=== PATIENT | female | born 1950 | race African-American/Black ===

== ENCOUNTER → 2020-06-26 10:19 | Outpatient (BNVA) | payer MEDICARE, SELFPAY | PROVIDERS: PCP Internal Medicine; Visit Provider Hospitalist | DX: J44.9 Chronic obstructive pulmonary disease, unspecified (principal); G47.33 Obstructive sleep apnea (adult) (pediatric); I42.9 Cardiomyopathy, unspecified; R06.00 Dyspnea, unspecified; J98.4 Other disorders of lung; Z99.89 Dependence on other enabling machines and devices | CPT/HCPCS: 99212 ==

== ENCOUNTER → 2021-03-21 14:59 | Outpatient (BNVA) | payer MEDICARE, SELFPAY | PROVIDERS: PCP Internal Medicine; Visit Provider Hospitalist | DX: J98.4 Other disorders of lung (principal); J44.9 Chronic obstructive pulmonary disease, unspecified; R06.00 Dyspnea, unspecified; G47.33 Obstructive sleep apnea (adult) (pediatric); Z99.89 Dependence on other enabling machines and devices | CPT/HCPCS: 99212 ==

== ENCOUNTER → 2021-07-21 15:42 | Outpatient (REF) | payer MEDICARE, SELFPAY | LOC: HO.SL 15:42 | PROVIDERS: PCP Internal Medicine; Visit Provider Hospitalist | DX: G47.33 Obstructive sleep apnea (adult) (pediatric) (principal); R06.83 Snoring; R63.4 Abnormal weight loss; Z99.89 Dependence on other enabling machines and devices | CPT/HCPCS: 95806 ==

== ENCOUNTER → 2021-09-23 12:31 | Outpatient (BNVA) | payer MEDICARE, SELFPAY | PROVIDERS: PCP Internal Medicine; Visit Provider Hospitalist | DX: J98.4 Other disorders of lung (principal); J44.9 Chronic obstructive pulmonary disease, unspecified; R06.00 Dyspnea, unspecified; G47.33 Obstructive sleep apnea (adult) (pediatric); Z99.89 Dependence on other enabling machines and devices | CPT/HCPCS: 99212 ==

== ENCOUNTER 2021-10-06 11:34 | Outpatient (REF) | payer MEDICARE, SELFPAY ==
[2021-10-06 12:25] LABS: Basophils Percent Auto 0.8 % (0-2); Eosinophils Absolute Auto 0.1 X10*3/uL (0.0-0.4); Eosinophils Percent Auto 3.7 % (0-4); Hematocrit 31.6 % (37.0-47.0); Hemoglobin 9.6 g/dl (12.0-16.0); Lymphocytes Percent Auto 38.8 % (20-40); MANUAL DIFF FLAG SCAN; Mean Corpuscular HGB Conc 30.4 g/dl (31.0-35.0); Mean Corpuscular Volume 101.9 fL (80.0-98.0); Mean Platelet Volume 10.6 fL (9.4-12.3); Monocytes Absolute Auto 0.4 X10*3/uL (0.1-1.2); Monocytes Percent Auto 15.1 % (2-11); Neutrophils Percent Auto 41.6 % (45-73); Platelet Count 148 X10*3/uL (160-400); Red Cell Distribution Width 14.8 % (11.0-16.0); SCAN SMEAR FLAG 1
[2021-10-06 12:29] LABS: White Blood Count 2.5 X10*3/uL (4.8-10.8)
[2021-10-06 13:06] LABS: SLIDE REVIEW VERIFIED
== END 2021-10-06 11:35 | disposition home or self-care (01) ==
LOC: HO.LAB 11:34
PROVIDERS: Visit Provider Nurse Practitioner Family
DX: I42.8 Other cardiomyopathies (principal); I48.0 Paroxysmal atrial fibrillation
CPT/HCPCS: 36415; 85025

== ENCOUNTER 2021-10-10 10:27 | Outpatient (REF) | payer MEDICARE, SELFPAY ==
--- NOTE | ~2021-10-10 | CT_ITS ---
EXAMINATION: CT HEAD WITH/WITHOUT CONTRAST CLINICAL INFORMATION: Reevaluate meningioma. COMPARISON: CT from 10/15/2016. TECHNIQUE: Contiguous axial imaging was performed from the skull base to vertex before and after the administration of 85 mL of Omnipaque [address] examination was performed using dose optimization techniques as appropriate, variously including the following: *Automated exposure control *Adjustment of mA and/or kV according to patient size (this includes techniques or standardized protocols for targeted exams where dose is matched to indication/reason for exam; i.e. extremities or head) *Use of iterative reconstruction technique DLP: 1547 mGy-cm FINDINGS: A small 1 cm meningioma at the vertex adjacent to the falx on the right side with eccentric internal mineralization is stable compared to prior imaging. There is no evidence of acute intracranial hemorrhage or territorial infarction. No abnormal mass effect or midline shift is seen. [place] to white matter differentiation is well preserved. No extra-axial fluid collections are identified. The ventricles are normal in size. There is no abnormal parenchymal enhancement. There is no abnormal attenuation within the brain parenchyma. The osseous structures and soft tissues are normal. The mastoid air cells are well aerated. There are high attenuation mucoid secretions opacifying the left maxillary sinus, left middle meatus, and left anterior ethmoid air cells. The frontal sinuses are not developed. The remaining paranasal sinuses are fairly well aerated. Findings are new compared to prior imaging. CT/CT head/brain wo/w con IMPRESSION: No acute intracranial pathology. Stable small right parafalcine meningioma at the vertex. Left-sided ostiomeatal complex pattern of sinus disease with high attenuation mucoid secretions opacifying the anterior left ethmoid air cells, left middle meatus, and left maxillary antrum. Follow-up ENT evaluation recommended in order to rule out an obstructing lesion. Please note that the left maxillary dentition are not included on imaging for this examination.
[2021-10-10] MEDS: iohexoL 350 MG/ML 100 ML INFUS..BTL IV (12:10)
== END 2021-10-10 10:28 | disposition home or self-care (01) ==
LOC: HO.CT 10:27
PROVIDERS: Visit Provider Psychiatry & Neurology Neurology
DX: D32.9 Benign neoplasm of meninges, unspecified (principal)
CPT/HCPCS: 70470; Q9967

== ENCOUNTER → 2022-05-06 10:54 | Outpatient (BNVA) | payer MEDICARE, SELFPAY | PROVIDERS: PCP Internal Medicine; Visit Provider Hospitalist | DX: J44.9 Chronic obstructive pulmonary disease, unspecified (principal); J98.4 Other disorders of lung; R06.00 Dyspnea, unspecified | CPT/HCPCS: 99212 ==

== ENCOUNTER 2022-06-23 09:32 | Outpatient (REF) | payer MEDICARE, SELFPAY ==
--- NOTE | 2022-06-23 14:46 | PFT_ITS ---
Forced vital capacity is 73%, FEV1 79%, FEV1/FVC ratio 84. PBT52-81 104% and MVV 74%. Post bronchodilator therapy, there is no change. Total lung capacity 68% and residual volume 63%. Diffusion capacity 58% CONCLUSION: Restrictive pulmonary disorder, moderately severe. No obstructive airway disorder, and there is no response to bronchodilator therapy. MD SROEN Ring/ASHER / [id number]
== END 2022-06-23 09:33 | disposition home or self-care (01) ==
LOC: HO.RESP 09:32
PROVIDERS: PCP Internal Medicine; Visit Provider Hospitalist
DX: J44.9 Chronic obstructive pulmonary disease, unspecified (principal)
CPT/HCPCS: 94060; 94727; 94729

== ENCOUNTER 2022-08-19 09:29 | Outpatient (REF) | payer MEDICARE, SELFPAY ==
--- NOTE | ~2022-08-19 | XR_ITS ---
EXAMINATION: XR CHEST CLINICAL INFORMATION: J98.4 - Other disorders of lung COMPARISON: Chest radiographs 06/26/2019, CT chest 07/28/2019. TECHNIQUE: 2 views of the chest were obtained. FINDINGS: Cardiopericardial silhouette is borderline enlarged, stable to decreased from prior chest radiographs. The vascularity is normal. There is a 3-lead pacer/AICD. No pneumothorax, airspace consolidation, or groundglass opacity. The posterior costophrenic sulci are clear. There is no effusion. No hyperinflation. XR/XR chest 2V IMPRESSION: No acute intrathoracic disease.
== END 2022-08-19 09:30 | disposition home or self-care (01) ==
LOC: HO.XRAY 09:29
PROVIDERS: PCP Internal Medicine; Visit Provider Hospitalist
DX: J98.4 Other disorders of lung (principal); R06.00 Dyspnea, unspecified; J44.9 Chronic obstructive pulmonary disease, unspecified; G47.33 Obstructive sleep apnea (adult) (pediatric); Z79.899 Other long term (current) drug therapy
CPT/HCPCS: 71046; 99212

== ENCOUNTER → 2022-12-23 09:27 | Outpatient (BNVA) | payer MEDICARE, SELFPAY | PROVIDERS: PCP Internal Medicine; Visit Provider Hospitalist | DX: J44.9 Chronic obstructive pulmonary disease, unspecified (principal); J98.4 Other disorders of lung; J98.11 Atelectasis | CPT/HCPCS: 99212 ==

== ENCOUNTER 2023-09-21 13:51 | Outpatient (AMB) | payer MEDICARE, SELFPAY ==
[2023-09-21 14:05] VITALS: BP 132/70; PULSE 60; O2SAT 98; BMI 31.0
--- NOTE | 2023-09-21 14:05 | A.OFFVIS_ITS ---
Intake Vital Signs 09/21/23 14:05 Height 5 ft 8 in Weight 204 lb BMI 31.0 BP 132/70 Blood Pressure Location Lt brachial Position Sitting Pulse 60 Pulse Source Pulse Oximeter Pulse Oximetry (%) 98 Oxygen Delivery Method Room Air Intake Visit Reasons: Sleep apnea Allergies Codeine Allergy (Severe, Uncoded 09/21/23 14:06) Rash and Hives HPI HPI Comments History of Present Illness Details The patient is a 73-year-old woman known COPD in addition to obstructive sleep apnea on CPAP. Apparently she was scheduled to undergo a total knee replacement at [facility] back in March 2019 which was found to have being age from fibrillation this was a new diagnosis for her. She was admitted to the hospital with AFib with rapid ventricular response with EKG changes. Her echo was done demonstrating an EF of 35-40%. She also underwent a diagnostic catheterization demonstrated some coronary artery disease. She was subsequently sent to [facility] for a intervention however, her her blockers was not significant enough for too small for stent so therefore they opted on medical therapy. At this point she does not require surgical intervention. She is recovering well she is on Eliquis now for blood thinners. She currently has a Holter monitor to further assess her arrhythmias. Her breathing still an issue. She is to having dyspnea on exertion. Moderate severity. She has been using Symbicort at times. The patient also has a history of sleep apnea. She has not been able to get back to using her machine after her recent hospitalization. She understands that we need to get her back on CPAP nor to treat her cardiac risk including her cardiac arrhythmia and coronary artery disease. Holter monitor was okay. There is still not sure how much of the cardiac issues contributing to her respiratory symptoms. She did have pulmonary function studies that with we personally reviewed no evidence of any obstruction although she has small airway disease more consistent with a diagnosis like asthma. She responds very well to the inhaler. However she also has a restrictive component. We have to further investigate this with imaging studies. Her CPAP she still getting used to her new mask. She has tried going to try her old mask. She understands she needs to do that because is going to treat her cardiovascular risk. She did undergo a CT scan of the chest that we personally reviewed. The patient did have some evidence of atelectasis at the bases. Partly due to enlarged heart question on the lungs. Does have significant cardiomegaly. She also has evidence of atherosclerosis and distended vessels. The patient also was taken for brief walking oximetry and she maintain a pulse ox of 96%. However the heart rate did increase above 100 and the patient quickly became very short of breath with that. She will be following up with the wire tester soon. In the meantime she continues use her CPAP. The CPAP therapy continues to be effective beneficial. She uses the CPAP for more than 4 hours a night. 12/23/2022 the patient is here for a pulmo nary follow-up visit. Since we last spoke the patient unfortunately had a bad fall fracturing her left like. She did have to be admitted to [facility] which she did undergo surgery. Now she is recovering at home. She still has a soft splint and she is going to be evaluated soon since the just happen. Since they have been she has been noticing increasing shortness of breath hard time taking a deep breath in. Denies any mucus production denies any fevers or chills and she denies any pleuritic discomfort which is reassuring for she has been using the Trelegy inha ler although is bothering her throat most likely the powder. Therefore will switch over to an HFA form with spacer to better provide the medication without irritating her vocal cords. In addition to that the patient does have some crackles on examination at the right base. Likely atelectasis postoperatively and she needs to start using the hand forearm her more. In the meantime if the patient worsens with increasing shortness of breath cough discomfort I did give her a course of doxycycline she can start but also to call me to let me know. We did talk about the importance of the incentive spirometer and she can use it 3 to 4 times a day to avoid developing a infectious process. Will follow-up in 2-3 months. If she has any new or worsening respiratory symptoms she is to call for further evaluation. 09/21/2023 the patient is here for pulmonary follow-up visit. currently having issues with the knee. 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 Now she is going to undergo surgery. For respiratory status she continues to use her respiratory medications with good effect. She does complaint of shortness of breath with activity. The patient does have good response to her respiratory medications. She does complaint of headaches in the morning. The patient does have underlying COPD so therefore I will request an overnight oximetry to see if she requires nocturnal oxygen. During the last visit we did switch over from Trelegy to breztri and she is tolerating it well. Her last chest x-ray was back from June 2023 demo nstrating no acute disease. Will hold off on any additional imaging at this time. Will try to have an overnight oximetry done prior to her surgery. The patient will follow-up in 4-6 months. [facility] Medical History (Updated 09/21/23 @ 14:10 by Horace Gonsalves MD) Chronic restrictive lung disease Dyspnea Cardiomyopathy DENYS on CPAP COPD (chronic obstructive pulmonary disease) Social History (Updated 03/21/21 @ 15:30 by LUCY Zhou) Patient Tobacco Use Status: Former Tobacco user Tobacco use type: Cigarette Years Smoked: 16 years Review of Systems Const Reports daytime sleepiness, Reports difficulty sleeping, Reports headache(s), Reports poor appetite and Reports weight gain ENT Denies change in voice, Reports headache(s), Denies lip swelling, Denies mouth pain, Reports nasal congestion, Reports nasal discharge and Denies tongue swelling Card Denies chest pain and Reports dyspnea on exertion Resp Reports cough and Reports dyspnea on exertion GI Denies abdominal pain Musc Reports as per HPI, Reports abnormal gait, Reports arthralgias and Reports joint swelling Neuro Denies Neuro-related abnormal movements, Reports abnormal gait and Reports hea dache(s) Psych Denies no additional complaints Seven/Lymph Denies easy bleeding and Denies lymphadenopathy Aller/Immun Denies lip swelling and Denies tongue swelling Physical Exam Vital Signs: Last Vital Signs Pulse 60 09/21/23 14:05 BP 132/70 09/21/23 14:05 Pulse Ox 98 09/21/23 14:05 Oxygen Delivery Method Room Air 09/21/23 14:05 BMI result Body Mass Index 31.0 Const General: alert Neck Neck: Yes normal visual inspection, Yes full ROM and Yes no lymphadenopathy Chest Chest palpation & inspection: normal inspection of the chest Resp Auscultation: no crackles and diminished lung sounds Cardio Rate: regular rate Rhythm: regular rhythm Heart sounds: S1 normal heart sound present and S2 normal heart sound present GI Palpation (GI): Soft to palpation and nontender Auscultation: normal bowel sounds Skin General skin exam: rashes and/or lesions noted Assessment & Plan Assessment & Plan (1) Chronic restrictive lung disease: Code(s): J98.4 - Other disorders of lung (2) Dyspnea: Code(s): R06.00 - Dyspnea, unspecified Qualifiers: Dyspnea type: dyspnea on exertion Qualified Code(s): R06.09 - Other forms of dyspnea (3) COPD (chronic obstructive pulmonary disease): Code(s): J44.9 - Chronic obstructive pulmonary disease, unspecified Qualifiers: COPD type: chronic bronchitis Chronic bronchitis type: simple Qualified Code(s): J41.0 - Simple chronic bronchitis (4) Atelectasis of right lung: Code(s): J98.11 - Atelectasis Plan continue Breztri with spacer short-acting beta agonist as needed Overnight oximetry F/U in 4-6 months Orders: Orders Overnight Pulse Oximetry Today J44.9 - Chronic obstructive pulmonary disease, unspecified Coding Level of Care Code Est Pt Level 4 (30819) Diagnoses Chronic restrictive lung disease J98.4 Dyspnea on exertion R06.09 Dyspnea type: dyspnea on exertion Simple chronic bronchitis J41.0 COPD type: chronic bronchitis Chronic bronchitis type: simple Atelectasis of right lung J98.11 Time Spent (min) 17
== END 2023-09-21 14:24 | disposition home or self-care (01) ==
PROVIDERS: PCP Internal Medicine; Visit Provider Hospitalist
DX: J98.4 Other disorders of lung (principal); R06.09 Other forms of dyspnea; J41.0 Simple chronic bronchitis; J98.11 Atelectasis
CPT/HCPCS: 99214

== ENCOUNTER → 2023-09-21 13:51 | Outpatient (BNVA) | payer MEDICARE, SELFPAY | PROVIDERS: PCP Internal Medicine; Visit Provider Hospitalist | DX: J98.4 Other disorders of lung (principal); J41.0 Simple chronic bronchitis; J98.11 Atelectasis; R06.09 Other forms of dyspnea | CPT/HCPCS: 99212 ==

== ENCOUNTER 2024-03-23 14:16 | Outpatient (AMB) | payer MEDICARE, SELFPAY ==
--- NOTE | 2024-03-23 14:20 | A.OFFVIS_ITS ---
Vital Signs 03/23/24 14:21 Height 5 ft 8 in Weight 195 lb BMI 29.6 BP 118/60 Blood Pressure Location Rt brachial Position Sitting Pulse 60 Pulse Source Pulse Oximeter Pulse Oximetry (%) 99 Oxygen Delivery Method Room Air Intake Visit Reasons: Sleep apnea Bulk Cooler Installer Required: No Allergies Codeine Allergy (Severe, Uncoded 03/23/24 14:23) Rash and Hives HPI Comments Details: The patient is a 73-year-old woman known COPD in addition to obstructive sleep apnea on CPAP. Apparently she was scheduled to undergo a total knee replacement at [facility] back in March 2019 which was found to have being age from fibrillation this was a new diagnosis for her. She was admitted to the hospital with AFib with rapid ventricular response with EKG changes. Her echo was done demonstrating an EF of 35-40%. She also underwent a diagnostic catheterization demonstrated some coronary artery disease. She was subsequently sent to [facility] for a intervention however, her her blockers was not significant enough for too small for stent so therefore they opted on medical therapy. At this point she does not require surgical intervention. She is recovering well she is on Eliquis now for blood thinners. She currently has a Holter monitor to further assess her arrhythmias. Her breathing still an issue. She is to having dyspnea on exertion. Moderate severity. She has been using Symbicort at times. The patient also has a history of sleep apnea. She has not been able to get back to using her machine after her recent hospitalization. She understands that we need to get her back on CPAP nor to treat her cardiac risk including her cardiac arrhythmia and coronary artery disease. Holter monitor was okay. There is still not sure how much of the cardiac issues contributing to her respiratory symptoms. She did have pulmonary function studies that with we personally reviewed no evidence of any obstruction although she has small airway disease more consistent with a diagnosis like asthma. She responds very well to the inhaler. However she also has a restrictive component. We have to further investigate this with imaging studies. Her CPAP she still getting used to her new mask. She has tried going to try her old mask. She understands she needs to do that because is going to treat her cardiovascular risk. She did undergo a CT scan of the chest that we personally reviewed. The patient did have some evidence of atelectasis at the bases. Partly due to enlarged heart question on the lungs. Does have significant cardiomegaly. She also has evidence of atherosclerosis and distended vessels. The patient also was taken for brief walking oximetry and she maintain a pulse ox of 96%. However the heart rate did increase above 100 and the patient quickly became very short of breath with that. She will be following up with the backhoe operator soon. In the meantime she continues use her CPAP. The CPAP therapy continues to be effective beneficial. She uses the CPAP for more than 4 hours a night. 12/23/2022 the patient is here for a pulmonary follow-up visit. Since we last spoke the patient unfortunately had a bad fall fracturing her left like. She did have to be admitted to [facility] which she did undergo surgery. Now she is recovering at home. She still has a soft splint and she is going to be evaluated soon since the just happen. Since they have been she has been noticing increasing shortness of breath hard time taking a deep breath in. Denies any mucus production denies any fevers or chills and she denies any pleuritic discomfort which is reassuring for she has been using the Trelegy inhaler although is bothering her throat most likely the powder. Therefore will switch over to an HFA form with spacer to better provide the medication without irritating her vocal cords. In addition to that the patient does have some crackles on examination at the right base. Likely atelectasis postoperatively and she needs to start using the hand forearm her more. In the meantime if the patient worsens with increasing shortness of breath cough discomfort I did give her a course of doxycycline she can start but also to call me to let me know. We did talk about the importance of the incentive spirometer and she can use it 3 to 4 times a day to avoid developing a infectious process. Will follow-up in 2-3 months. If she has any new or worsening respiratory symptoms she is to call for further evaluation. 09/21/2023 the patient is here for pulmonary follow-up visit. currently having issues with the knee. 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 Now she is going to undergo surgery. For respiratory status she continues to use her respiratory medications with good effect. She does complaint of shortness of breath with activity. The patient does have good response to her respiratory medications. She does complaint of headaches in the morning. The patient does have underlying COPD so therefore I will request an overnight oximetry to see if she requires nocturnal oxygen. During the last visit we did switch over from Trelegy to breztri and she is tolerating it well. Her last chest x-ray was back from June 2023 demonstrating no acute disease. Will hold off on any additional imaging at this time. Will try to have an overnight oximetry done prior to her surgery. The patient will follow-up in 4-6 months. 03/23/2024 The patient is here for a pulmonary follow up visit. Has been Complaining of worsened daytime drowsiness. Her [place] score is elevated 06/11. She also complains of headaches. We did perform an overnight oximetry and she did desaturate significantly. She was placed on oxygen to use while sleeping. However, she did not tolerate the loud concentrator. Therefore she returned it. Although she is still symptomatic. She does carry a diagnosis of sleep apnea. Will go ahead and request an in-lab sleep study specially with nocturnal hypoxia. In the meantime she continues respiratory therapy with good effect. The patient follow-up after her in-lab sleep study. [facility] Medical History (Updated 03/23/24 @ 14:38 by Horace Gonsalves MD) Ventricular tachycardia Nocturnal hypoxia DENYS (obstructive sleep apnea) Chronic restrictive lung disease Dyspnea Cardiomyopathy DENYS on CPAP COPD (chronic obstructive pulmonary disease) Social History (Updated 03/21/21 @ 15:30 by Milla Rawls [facility]) Patient Tobacco Use Status: Former Tobacco user Tobacco use type: Cigarette Years Smoked: 16 years Review of Systems Const Reports daytime sleepiness, Reports difficulty sleeping, Reports headache(s), Reports poor appetite and Reports weight gain ENT Denies change in voice, Reports headache(s), Denies lip swelling, Denies mouth pain, Reports nasal congestion, Reports nasal discharge and Denies tongue swelling Card Denies chest pain and Reports dyspnea on exertion Resp Reports cough and Reports dyspnea on exertion GI Denies abdominal pain Musc Reports as per HPI, Reports abnormal gait, Reports arthralgias and Reports joint swelling Neuro Denies Neuro-related abnormal movements, Reports abnormal gait and Reports headache(s) Psych Denies no additional complaints Seven/Lymph Denies easy bleeding and Denies lymphadenopathy Aller/Immun Denies lip swelling and Denies tongue swelling Physical Exam Vital Signs: Last Vital Signs Pulse 60 03/23/24 14:21 BP 118/60 03/23/24 14:21 Pulse Ox 99 03/23/24 14:21 Oxygen Delivery Method Room Air 03/23/24 14:21 BMI result Body Mass Index 29.6 Const General: alert Neck Neck: Yes normal visual inspection, Yes full ROM and Yes no lymphadenopathy Chest Chest palpation & inspection: normal inspection of the chest Resp Auscultation: no crackles and diminished lung sounds Cardio Rate: regular rate Rhythm: regular rhythm Heart sounds: S1 normal heart sound present and S2 normal heart sound present GI Palpation (GI): Soft to palpation and nontender Auscultation: normal bowel sounds Skin General skin exam: rashes and/or lesions noted Assessment & Plan Assessment & Plan (1) Chronic restrictive lung disease: Code(s): J98.4 - Other disorders of lung Category: Medical (2) Dyspnea: Code(s): R06.00 - Dyspnea, unspecified Category: Medical Qualifiers: Dyspnea type: dyspnea on exertion Qualified Code(s): R06.09 - Other forms of dyspnea (3) COPD (chronic obstructive pulmonary disease): Code(s): J44.9 - Chronic obstructive pulmonary disease, unspecified Category: Medical Qualifiers: COPD type: chronic bronchitis Chronic bronchitis type: simple Qualified Code(s): J41.0 - Simple chronic bronchitis (4) Atelectasis of right lung: Code(s): J98.11 - Atelectasis Category: Medical (5) DENYS (obstructive sleep apnea): Code(s): G47.33 - Obstructive sleep apnea (adult) (pediatric) Category: Medical Plan continue Breztri with spacer short-acting beta agonist as needed in lab PSG F/U in 3-4 months Orders: Orders RT PSG in-lab sleep study Today G47.33 - Obstructive sleep apnea (adult) (pediatric), G47.34 - Idiopathic sleep related nonobstructive alveolar hypoventilation, I47.20 - Ventricular tachycardia, unspecified Coding Level of Care Code Est Pt Level 4 (62647) Diagnoses Chronic restrictive lung disease J98.4 Dyspnea on exertion R06.09 Dyspnea type: dyspnea on exertion Simple chronic bronchitis J41.0 COPD type: chronic bronchitis Chronic bronchitis type: simple Atelectasis of right lung J98.11 DENYS (obstructive sleep apnea) G47.33 Time Spent (min) 16
[2024-03-23 14:21] VITALS: BP 118/60; PULSE 60; O2SAT 99; BMI 29.6
== END 2024-03-23 14:45 | disposition home or self-care (01) ==
PROVIDERS: PCP Internal Medicine; Visit Provider Hospitalist
DX: J98.4 Other disorders of lung (principal); R06.09 Other forms of dyspnea; J41.0 Simple chronic bronchitis; J98.11 Atelectasis; G47.33 Obstructive sleep apnea (adult) (pediatric)
CPT/HCPCS: 99214

== ENCOUNTER → 2024-03-23 14:16 | Outpatient (BNVA) | payer MEDICARE, SELFPAY | PROVIDERS: PCP Internal Medicine; Visit Provider Hospitalist | DX: G47.33 Obstructive sleep apnea (adult) (pediatric) (principal); J98.4 Other disorders of lung; J41.0 Simple chronic bronchitis; J98.11 Atelectasis; Z99.89 Dependence on other enabling machines and devices | CPT/HCPCS: 99212 ==

== ENCOUNTER → 2024-04-03 20:30 | Outpatient (REF) | payer MEDICARE, SELFPAY | LOC: HO.SL 20:30 | PROVIDERS: PCP Internal Medicine; Visit Provider Hospitalist | DX: G47.33 Obstructive sleep apnea (adult) (pediatric) (principal); G47.34 Idiopathic sleep related nonobstructive alveolar hypoventilation; I47.20 Ventricular tachycardia, unspecified | CPT/HCPCS: 95810 ==

== ENCOUNTER → 2024-04-03 21:52 | Outpatient (BNV) | payer MEDICARE, SELFPAY | PROVIDERS: PCP Internal Medicine; Visit Provider Internal Medicine | DX: G47.33 Obstructive sleep apnea (adult) (pediatric) (principal); G47.61 Periodic limb movement disorder | CPT/HCPCS: 95810 ==

== ENCOUNTER 2024-07-26 11:09 | Outpatient (AMB) | payer MEDICARE, SELFPAY ==
--- NOTE | 2024-07-26 11:13 | MHC.OFFVIS ---
Vital Signs 07/26/24 11:14 Height 5 ft 8 in Weight 209 lb 7.026 oz BMI 31.8 BP 140/68 H Blood Pressure Location Lt brachial Position Sitting Pulse 60 Pulse Source Pulse Oximeter Pulse Oximetry (%) 97 Oxygen Delivery Method Room Air Intake Visit Reasons: Sleep apnea Allergies Codeine Allergy (Severe, Uncoded 07/26/24 11:19) Rash and Hives HPI Comments Details: The patient is a 74-year-old woman known COPD in addition to obstructive sleep apnea on CPAP. Apparently she was scheduled to undergo a total knee replacement at [facility] back in March 2019 which was found to have being age from fibrillation this was a new diagnosis for her. She was admitted to the hospital with AFib with rapid ventricular response with EKG changes. Her echo was done demonstrating an EF of 35-40%. She also underwent a diagnostic catheterization demonstrated some coronary artery disease. She was subsequently sent to [facility] for a intervention however, her her blockers was not significant enough for too small for stent so therefore they opted on medical therapy. At this point she does not require surgical intervention. She is recovering well she is on Eliquis now for blood thinners. She currently has a Holter monitor to further assess her arrhythmias. Her breathing still an issue. She is to having dyspnea on exertion. Moderate severity. She has been using Symbicort at times. The patient also has a history of sleep apnea. She has not been able to get back to using her machine after her recent hospitalization. She understands that we need to get her back on CPAP nor to treat her cardiac risk including her cardiac arrhythmia and coronary artery disease. Holter monitor was okay. There is still not sure how much of the cardiac issues contributing to her respiratory symptoms. She did have pulmonary function studies that with we personally reviewed no evidence of any obstruction although she has small airway disease more consistent with a diagnosis like asthma. She responds very well to the inhaler. However she also has a restrictive component. We have to further investigate this with imaging studies. Her CPAP she still getting used to her new mask. She has tried going to try her old mask. She understands she needs to do that because is going to treat her cardiovascular risk. She did undergo a CT scan of the chest that we personally reviewed. The patient did have some evidence of atelectasis at the bases. Partly due to enlarged heart question on the lungs. Does have significant cardiomegaly. She also has evidence of atherosclerosis and distended vessels. The patient also was taken for brief walking oximetry and she maintain a pulse ox of 96%. However the heart rate did increase above 100 and the patient quickly became very short of breath with that. She will be following up with the pattern stamper soon. In the meantime she continues use her CPAP. The CPAP therapy continues to be effective beneficial. She uses the CPAP for more than 4 hours a night. 12/23/2022 the patient is here for a pulmonary follow-up visit. Since we last spoke the patient unfortunately had a bad fall fracturing her left like. She did have to be admitted to [facility] which she did undergo surgery. Now she is recovering at home. She still has a soft splint and she is going to be evaluated soon since the just happen. Since they have been she has been noticing increasing shortness of breath hard time taking a deep breath in. Denies any mucus production denies any fevers or chills and she denies any pleuritic discomfort which is reassuring for she has been using the Trelegy inhaler although is bothering her throat most likely the powder. Therefore will switch over to an HFA form with spacer to better provide the medication without irritating her vocal cords. In addition to that the patient does have some crackles on examination at the right base. Likely atelectasis postoperatively and she needs to start using the hand forearm her more. In the meantime if the patient worsens with increasing shortness of breath cough discomfort I did give her a course of doxycycline she can start but also to call me to let me know. We did talk about the importance of the incentive spirometer and she can use it 3 to 4 times a day to avoid developing a infectious process. Will follow-up in 2-3 months. If she has any new or worsening respiratory symptoms she is to call for further evaluation. 09/21/2023 the patient is here for pulmonary follow-up visit. currently having issues with the knee. 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 Now she is going to undergo surgery. For respiratory status she continues to use her respiratory medications with good effect. She does complaint of shortness of breath with activity. The patient does have good response to her respiratory medications. She does complaint of headaches in the morning. The patient does have underlying COPD so therefore I will request an overnight oximetry to see if she requires nocturnal oxygen. During the last visit we did switch over from Trelegy to breztri and she is tolerating it well. Her last chest x-ray was back from June 2023 demonstrating no acute disease. Will hold off on any additional imaging at this time. Will try to have an overnight oximetry done prior to her surgery. The patient will follow-up in 4-6 months. 03/23/2024 The patient is here for a pulmonary follow up visit. Has been Complaining of worsened daytime drowsiness. Her [place] score is elevated 06/11. She also complains of headaches. We did perform an overnight oximetry and she did desaturate significantly. She was placed on oxygen to use while sleeping. However, she did not tolerate the loud concentrator. Therefore she returned it. Although she is still symptomatic. She does carry a diagnosis of sleep apnea. Will go ahead and request an in-lab sleep study specially with nocturnal hypoxia. In the meantime she continues respiratory therapy with good effect. The patient follow-up after her in-lab sleep study. 07/26/2024 the patient is here for a pulmonary follow-up visit. Overall she is doing well. Still has some dyspnea on exertion thip-bj-lppodnlk severity. Also gets wheezing time specially she forgets to take her inhaler. She does take her inhalers regularly. She has not had any recent exacerbations. She is sleeping better. She is not using oxygen at nighttime. She did have a in-lab sleep study which we did review. No evidence of any sleep apnea or hypoxia this time. Therefore is reassuring. She may have a component of periodic limb movement but does related to the fact that she has had some issues with her hips and knees. She is also having some issues with her eyes with her significantly red. She also has what appears to be some swelling around the eyes. They are we doing her kitchen therefore may have other allergens in the area. Will go ahead and send her an allergy medication to see if this provides some relief. Overall she is doing well. The patient will continue with current respiratory therapy plan to follow-up sometime in the fall. If any issues arise she can always call for an earlier assessment. [facility] Medical History (Updated 03/23/24 @ 14:38 by Horace Gonsalves MD) Ventricular tachycardia Nocturnal hypoxia DENYS (obstructive sleep apnea) Chronic restrictive lung disease Dyspnea Cardiomyopathy DENYS on CPAP COPD (chronic obstructive pulmonary disease) Social History Patient Tobacco Use Status: Former Tobacco user Tobacco use type: Cigarette Years Smoked: 16 years Review of Systems Const Reports daytime sleepiness, Reports difficulty sleeping, Reports headache(s), Reports poor appetite and Reports weight gain ENT Denies change in voice, Reports headache(s), Denies lip swelling, Denies mouth pain, Reports nasal congestion, Reports nasal discharge and Denies tongue swelling Card Denies chest pain and Reports dyspnea on exertion Resp Reports cough and Reports dyspnea on exertion GI Denies abdominal pain Musc Reports as per HPI, Reports abnormal gait, Reports arthralgias and Reports joint swelling Neuro Denies Neuro-related abnormal movements, Reports abnormal gait and Reports headache(s) Psych Denies no additional complaints Seven/Lymph Denies easy bleeding and Denies lymphadenopathy Aller/Immun Denies lip swelling and Denies tongue swelling Physical Exam Vital Signs: Last Vital Signs Pulse 60 07/26/24 11:14 BP 140/68 H 07/26/24 11:14 Pulse Ox 97 07/26/24 11:14 Oxygen Delivery Method Room Air 07/26/24 11:14 BMI result Body Mass Index 31.8 Const General: alert Eyes Periorbital: periorbital findings abnormal bilateral periorbital swelling Neck Neck: Yes normal visual inspection, Yes full ROM and Yes no lymphadenopathy Chest Chest palpation & inspection: normal inspection of the chest Resp Auscultation: clear to auscultation bilaterally and no crackles Cardio Rate: regular rate Rhythm: regular rhythm Heart sounds: S1 normal heart sound present, S2 normal heart sound present and Murmur heart sound present GI Palpation (GI): Soft to palpation and nontender Auscultation: normal bowel sounds Skin General skin exam: rashes and/or lesions noted Assessment & Plan Assessment & Plan (1) Chronic restrictive lung disease: Code(s): J98.4 - Other disorders of lung Category: Medical (2) Dyspnea: Code(s): R06.00 - Dyspnea, unspecified Category: Medical Qualifiers: Dyspnea type: dyspnea on exertion Qualified Code(s): R06.09 - Other forms of dyspnea (3) COPD (chronic obstructive pulmonary disease): Code(s): J44.9 - Chronic obstructive pulmonary disease, unspecified Category: Medical Qualifiers: COPD type: chronic bronchitis Chronic bronchitis type: simple Qualified Code(s): J41.0 - Simple chronic bronchitis (4) Atelectasis of right lung: Code(s): J98.11 - Atelectasis Category: Medical (5) DENYS (obstructive sleep apnea): Code(s): G47.33 - Obstructive sleep apnea (adult) (pediatric) Category: Medical Plan continue Breztri with spacer short-acting beta agonist as needed start claritin F/U in 6-8 months Medications: New loratadine (Claritin) 10 mg PO DAILY 30 tabs 11RF 30 days J30.2 - Other seasonal allergic rhinitis, J45.909 - Unspecified asthma, uncomplicated Coding Level of Care Code Est Pt Level 4 (54208) Diagnoses Chronic restrictive lung disease J98.4 Dyspnea on exertion R06.09 Dyspnea type: dyspnea on exertion Simple chronic bronchitis J41.0 COPD type: chronic bronchitis Chronic bronchitis type: simple Atelectasis of right lung J98.11 DENYS (obstructive sleep apnea) G47.33 Time Spent (min) 16
[2024-07-26 11:14] VITALS: BP 140/68; PULSE 60; O2SAT 97; BMI 31.8
--- OUTSIDE RECORDS SUMMARY | 2024-07-26 11:32 | XMS_ITS | Continuity of Care Document ---
Author Organization [facility] Address [address] [place] [address]- Support Name Relationship Address Phone BECKY, KWOK Personal Relationship Unknown U navailable BECKY, KWOK Personal Relationship Unknown U navailable OSBOUNE, KWOK Personal Relationship Unknown Un available BECKY, KWOK Personal Relationship Unknown U navailable BECKY, KWOK Personal Relationship Unknown U navailable BECKY, KWOK Personal Relationship Unknown U navailable OSBOUNE, KWOK Personal Relationship Unknown Un available BECKY, KWOK Personal Relationship Unknown U navailable BECKY, KWOK Personal Relationship Unknown U navailable BECKY, KWOK Personal Relationship Unknown U navailable BECKY, KWOK Personal Relationship Unknown U navailable BECKY, KWOK Personal Relationship Unknown U navailable BECKY, KWOK Personal Relationship Unknown U navailable OSBOUNE, KWOK Personal Relationship Unknown Un available OSBOUNE, KWOK Personal Relationship Unknown Un available BECKY, KWOK Personal Relationship Unknown U navailable BECKY, KWOK spouse Unknown Unavailabl e BECKY, KWOK Personal Relationship Unknown U navailable BECKY, KWOK Personal Relationship Unknown U navailable BECKY, KWOK Personal Relationship Unknown U navailable BECKY, KWOK Personal Relationship Unknown U navailable BECKY, KWOK Personal Relationship Unknown U navailable BECKY, KWOK Personal Relationship Unknown U navailable BECKY, KWOK Personal Relationship Unknown U navailable BECKY, KWOK Personal Relationship Unknown U navailable BECKY, KWOK Personal Relationship Unknown U navailable BECKY, KWOK Personal Relationship Unknown U navailable BECKY, KWOK Personal Relationship Unknown U navailable JANELLE, ROGERIO child Unknown Unavailable BECKY, KWOK Personal Relationship Unknown U navailable BECKY, KWOK Personal Relationship Unknown U chencho PENA, RISSA Personal Relationship Unknown U chencho EPNA, RISSA Personal Relationship Unknown U chencho PENA, RISSA Personal Relationship Unknown U darwinailkatrin Care Team Providers Care Family Service Aide Name Role Phone Vangie Ramachandran MD Primary Care Physician Encounter [facility] NBR [id number] Date(s): 05/11/24 - 07/22/24 [facility] [address] [place], [place] [address] Discharge Disposition: A-D/C Home Attending Physician: Boogie Winston MD Admitting Physician: Boogie Winston MD Referring Physician: Vangie Ramachandran MD Encounter Type: Disch Recurring OP Allergies, Adverse Reactions, Alerts Substance Criticality Severity Reaction Reaction Severity Status codeine Active Immunizations Given and Recorded Vaccine Date Status Refusal Reason pneumococcal 23-valent vaccine 01/08/10 Given Medications amiodarone 200 mg oral tablet 200 mg, 1, tablet, By Mouth, Daily Start Date: 04/07/21 Status: Ordered Repeat number: 1 Aspirin Low Dose 81 mg oral delayed release tablet 1 tablet = 81 mg, By Mouth, Daily, TAKE ONE TABLET BY MOUTH EVERY DAY Start Date: 04/07/21 Status: Ordered Repeat number: 1 atorvastatin 40 mg oral tablet 1 tablet = 40 mg, By Mouth, Daily at bedtime, TAKE ONE TABLET AT BEDTIME Start Date: 04/07/21 Status: Ordered Repeat number: 1 Breztri Aerosphere inhalation aerosol 2 puffs, Inhalation, 2 times a day Start Date: 10/27/23 Status: Ordered Repeat number: 1 Calcium 600+D Plus Minerals Daily, 0 Refills, Maintenance, 07/01/21 2:51:00 PM EST, Partial fill upon patient request if the prescription is for a schedule II opioid drug. Start Date: 07/01/21 Status: Ordered Repeat number: 1 calcium carbonate 600 mg oral tablet 1 tablet = 600 mg, By Mouth, Daily in AM Start Date: 10/27/23 Status: Ordered Repeat number: 1 cephalexin monohydrate 500 mg oral capsule 1 capsule = 500 mg, By Mouth, 2 times a day Start Date: 10/27/23 Status: Ordered Repeat number: 1 dexamethasone/neomycin/polymyxin B ophthalmic 1 mg-3.5 mg-22113 u/gm ointment APPLY IN THE AFFECTED EYE(S) AT BEDTIME DIRECTED Start Date: 10/27/23 Status: Ordered Repeat number: 1 Eliquis 2.5 mg oral tablet 1 tablet = 2.5 mg, By Mouth, 2 times a day, # 60 tablet, 0 Refills, Maintenance, 12/09/22 11:17:00 AM EDT, Tablet, Partial fill upon patient request if the prescription is for a schedule II opioid drug. Start Date: 12/09/22 Status: Ordered Quantity: 60.0 Unit: tablet Repeat number: 1 Entresto 24 mg-26 mg oral tablet 1 tablet, By Mouth, 2 times a day Start Date: 10/27/23 Status: Ordered Repeat number: 1 escitalopram 20 mg oral tablet 1 tablet = 20 mg, By Mouth, Daily in AM Start Date: 10/27/23 Status: Ordered Repeat number: 1 ferrous sulfate 325 mg oral tablet 1 tablet = 325 mg, By Mouth, 2 times a day, # 90 tablet, 0 Refills, Maintenance, 07/01/21 2:53:00 PM EST, Tablet, Partial fill upon patient request if the prescription is for a schedule II opioid drug. Start Date: 07/01/21 Status: Ordered Quantity: 90.0 Unit: tablet Repeat number: 1 folic acid 1 mg oral tablet 1 mg, 1, tablet, By Mouth, Daily in AM Start Date: 10/27/23 Status: Ordered Repeat number: 1 furosemide 20 mg oral tablet 20 mg, By Mouth, Daily, # 30 tablet, Refills 1, Tot. Refills 1, Maintenance, 10/29/23 4:09:00 PM EDT, Route to Pharmacy Electronically, [facility], Partial fill upon patient request if the prescription is for a schedule II opioid drug., 172.7, cm, 10/29/23 8:08:00 EDT, Height, 91.6, kg, 10/28/23 16:16:00 EDT, Dry Weight Start Date: 10/29/23 Status: Ordered Quantity: 30.0 Unit: tablet Repeat number: 2 Gabapentin = 900 mg, By Mouth, 0 Refills, Maintenance, 12/09/22 11:18:00 AM EDT, Partial fill upon patient request if the prescription is for a schedule II opioid drug. Start Date: 12/09/22 Status: Ordered Repeat number: 1 meclizine 12.5 mg oral tablet 1 tablet = 12.5 mg, By Mouth, Daily Start Date: 10/27/23 Status: Ordered Repeat number: 1 melatonin 5 mg oral tablet 1 tablet = 5 mg, By Mouth, Daily at bedtime, PRN as needed for insomnia, 0 Refills, Maintenance, 10/27/23 10:33:00 AM EDT, Partial fill upon patient request if the prescription is for a schedule II opioid drug. Start Date: 10/27/23 Status: Ordered Repeat number: 1 metoprolol 50 mg oral tablet 25 mg, 0.5, tablet, By Mouth, Daily, Refills 0, Maintenance, 04/13/19 9:03:36 AM EDT Start Date: 04/13/19 Status: Ordered Repeat number: 1 montelukast 10 mg oral tablet 10 mg, 1, tablet, By Mouth, Daily at bedtime Start Date: 10/27/23 Status: Ordered Repeat number: 1 Multivitamin 1 tablet, By Mouth, Daily, 0 Refills, Maintenance, 04/07/21 9:02:00 AM EDT, Partial fill upon patient request if the prescription is for a schedule II opioid drug. Start Date: 04/07/21 Status: Ordered Repeat number: 1 pantoprazole 40 mg oral delayed release tablet TAKE ONE TABLET TWICE DAILY IN THE MORNING AND AT BEDTIME NEEDED Start Date: 10/27/23 Status: Ordered Repeat number: 1 spironolactone 25 mg oral tablet 25 mg, 1, tablet, By Mouth, Daily, # 30 tablet, Refills 0, Maintenance, 07/01/21 2:56:00 PM EST, Partial fill upon patient request if the prescription is for a schedule II opioid drug. Start Date: 07/01/21 Status: Ordered Quantity: 30.0 Unit: tablet Repeat number: 1 sucralfate 1 gm oral tablet 1 Gm, 1, tablet, By Mouth, Daily at bedtime Start Date: 10/27/23 Status: Ordered Repeat number: 1 traZODone 50 mg oral tablet 100 mg, 2, tablet, By Mouth, Daily at bedtime, # 30 tablet, Refills 0, Maintenance, 10/27/23 1:21:00PM EDT, Partial fill upon patient request if the prescription is for a schedule II opioid drug. Start Date: 10/27/23 Status: Ordered Quantity: 30.0 Unit: tablet Repeat number: 1 Vitamin B Complex with C and Iron oral capsule 1 capsule, By Mouth, Daily, # 90 capsule, 0 Refills, Maintenance, 07/01/21 2:57:00 PM EST, Capsule,Partial fill upon patient request if the prescription is for a schedule II opioid drug. Start Date: 07/01/21 Status: Ordered Quantity: 90.0 Unit: capsule Repeat number: 1 Vitamin C 250 mg oral tablet 1 tablet = 250 mg, By Mouth, Daily in AM Start Date: 10/27/23 Status: Ordered Repeat number: 1 Vitamin D3 2000 intl units oral tablet 1 tablet = 50 mcg, By Mouth, Daily in AM Start Date: 10/27/23 Status: Ordered Repeat number: 1 Vraylar 1.5 mg oral capsule 1 capsule = 1.5 mg, By Mouth, Daily in AM Start Date: 10/27/23 Status: Ordered Repeat number: 1 Xiidra 5% ophthalmic solution 1 drops, Eyes, Both, 2 times a day Start Date: 10/27/23 Status: Ordered Repeat number: 1 Xopenex HFA 45 mcg/inh inhalation aerosol 2 puffs, Inhalation, Every 6 hours, PRN Wheezing/Shortness of Breath Start Date: 10/27/23 Status: Ordered Repeat number: 1 zinc sulfate 220 mg oral capsule 220 mg, 1, capsule, By Mouth, Daily, # 100 capsule, Refills 0, Maintenance, 07/01/21 2:54:00 PM EST, Partial fill upon patient request if the prescription is for a schedule II opioid drug. Start Date: 07/01/21 Status: Ordered Quantity: 100.0 Unit: capsule Repeat number: 1 Problem List Condition Confirmation Course Effective Dates Status Health St atus Informant Arthritis Confirmed Active Obese class I Confirmed Active Obesity 1 Confirmed Active 1Initial Weight 03/13/16 - 238.2 lbs. Vital Signs Most recent to oldest [Reference Range]: 1 Height 173 cm (05/22/24 1:23 PM) Weight 92.8 kg (05/22/24 1:23 PM) Oxygen Saturation [94-100 %] 95 % (05/22/24 1:23 PM) Pulse Rate [55-90 bpm] 55 bpm (05/22/24 1:23 PM) Body Mass Index [18.5-24.99 kg/m2] 31.01 kg/m2 *>HHI* (05/22/24 1:23 PM) Blood Pressure [90-138/55-84 mm Hg] 120/ 57mm Hg (05/22/24 1:23 PM) Temperature [96.8-100.4 DegF] 97.3 DegF (05/22/24 1:23 PM) Mode of Delivery (Oxygen) Room air (05/22/24 1:23 PM) Blood pressure sites Arm, right (05/22/24 1:23 PM) Temperature Route Oral (05/22/24 1:23 PM) Dry Weight 92.8 kg (05/22/24 1:23 PM) Weight Obtained Via Standing scale (05/22/24 1:23 PM) Dry Weight Obtained Via Standing scale (05/22/24 1:23 PM) Social History Social History Type Response Smoking Status Former smoker; Other : Quit 1990; entered on: 04/07/16 Sex Sex Representation Female (finding) Patient Care team information Care Team Personnel Name: Radha Stoner Position: [facility] Onco RN Member Role: Primary Care Nurse Name: Dalila Espinosa CNM Position: Reference Physician Member Role: Primary Care Nurse Address: [address] [place] [address] Telecom: Name: Leanne See RN Position: [facility] RN Member Role: Primary Care Nurse Name: Claudio Powers RN Position: [facility] RN Member Role: Primary Care Nurse Name: Katia Willard RN Position: [facility] AMB Nurse Member Role: Primary Care Nurse Name: Kiana Sharma RN Position: [facility] RN Member Role: Primary Care Nurse Name: Darlin Arrington RN Position: [facility] RN Member Role: Primary Care Nurse Name: Vangie Ramachandran MD Position: [facility] Outreach Member Role: PCP Address: [address] [place] [id number] Telecom: Name: Suzie Pineda RN Position: [facility] RN Member Role: Primary Care Nurse Name: Vladislav Fiore RN Position: [facility] RN Member Role: Primary Care Nurse Name: Sola Harrison RN Position: [facility] SN RN Member Role: Primary Care Nurse Name: Serena Crowe RN Position: [facility] RN Member Role: Primary Care Nurse Name: Rosette Keenan RN Position: [facility] RN Member Role: Primary Care Nurse Name: Tonya Martinez RN Position: [facility] RN Member Role: Primary Care Nurse Name: Boogie Winston MD Position: [facility] Physician - Oncology Med Service: Hematology & Oncology Member Role: Admitting Physician Address: [address] [place] [address] for Cancer Care [address] Telecom: Care Team Related Persons Name: ROGERIO LUIS Name: RISSA PENA Insurance Providers Guarantor name: CHUCK PENA Health Plan Information #: 2 Payer: MEDEX Member Number: [id number] Policy Number: NA Group Number: [id number] Health Plan Information #: 1 Payer: MEDICARE PART B OUTPT Member Number: [id number] Policy Number: NA Group Number: [id number]
--- OUTSIDE RECORDS SUMMARY | 2024-07-26 11:32 | XMS_ITS ---
Author Organization [facility] Address [address] [place] [address] Care Team Providers Care Sack Lifter Name Role Phone Vangie Ramachandran Primary Care Provider UnavailVelma Mccord [phone] REASON FOR VISIT buy freedom ( redi-t) [facility]counters En[facility] [address] [facility] Velma Woodall Plan Of Treatment Next Appt Details Provider Name:Velma Woodall , 08/08/2024 10:15:00 AM, [address] [facility], [place], [address], Progress Notes * Scarlet ELIZABETH MDOB:[birth year] (74 yo F)Acc No.[id number]:07/05/2024 Patient:?Scarlet ELIZABETH :1950???Age:74 Y???Sex:Female Address:[address] [place] [address], [id number] * true * Date:? Generated for Printi ng/Faxing/eTransmitting on:?07/26/2024 11:31 AM EST
--- OUTSIDE RECORDS SUMMARY | 2024-07-26 11:32 | XMS_ITS | Patient Health Record ---
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 Role Phone Vangie Ramachandran Primary Care Provider Unavailabl e Black, Velma Unavailable [phone] Allergies Allergen (clinical drug ingredient) Drug/Non Drug Allergy documented on EMR Reaction Allergy Type Onset Date Status general spinal (uncoded) Unknown Allergy Active codeine Codeine heart palpitations Drug Allergy Active corticosteroid and/or corticosteroid derivative (FN) Corticosteroids Unknown Drug Allergy Active Results Component Value Reference Range Notes X ray : Foot, right 2V Reviewed date:05/23/2024 11:55:29 AM Interpretation:See Examination above Performing Lab: Notes/Report: See Examination above X ray : Foot, left 3V Reviewed date:05/23/2024 11:55:45 AM Interpretation:See Examination above Performing Lab: Notes/Report: See Examination above Reason For Referral No Information Medications Medication SIG (Take, Route, Frequency, Duration) Notes Start Date End Date Status Montelukast Sodium 10 MG 1 tablet Orally Once a day Active traZODone HCl 50 MG 1 tablet at bedtime as needed Orally Once a day Active Loteprednol Etabonate Active Pravastatin Sodium 80 MG Orally Unknown Keflex Active Cephalexin 500 MG 1 capsule Orally twi ce a day for 10 days Active Vitamin D3 Active Aspirin Active Calcium + D3 Active Atorvastatin Calcium 40 MG 1 tablet Oral ly Once a day Active ProAir HFA Unknown Melatonin 5 MG 1 tablet in the even ing Orally Once a day Active Tramadol & Dietary Manage Prod Unknown Pepcid 20 MG 1 tablet at bedtime as needed Orally Once a day Active Gfkkgjkrjowjg-HARK-Vwpilrcik Unknown Lexapro 20 MG 1 tablet Orally Once a day Active Pulmicort Unknown Fish Oil Unknown Fosamax 70 MG Orally Unknow n Gabapentin Active Vraylar 1.5 MG 1 capsule Orally Onc e a day Active Ferrous Sulfate Acti ve Magnesium Oxide Acti ve Protonix 40 MG 1 tablet 1/2 to 1 ho ur before morning meal Orally Once a day Active Folic Acid Active Amlodipine & Diet Manage Prod Active Metoprolol Succinate 25 MG 1 capsule Ora lly Once a day Active Spironolactone Activ e eliquis Active Entresto 24-26 MG 1 tablet Orally Twic e a day Active Social History Alcohol Screen Question Answer Notes Did you have a drink containing alcohol in the p ast year? No Points 0 Interpretation Negative Tobacco use other than smoking: Question Answer Notes Are you an other tobacco user? No Problems Problem Type SNOMED Code ICD Code Onset Dates Problem Status W/U Status Risk Notes Problem Acquired hammer toe of right foot (1425451169911647) Other hammer toe(s) (acquired), right foot (M20.41) Active confirmed Problem 46843746 Other acquired deformities of right foot (M21.6X1) Active confirmed Problem 123525010 Other acquired deformities of left foot (M21.6X2) Active confirmed Problem 356011001 Neuropathy (G62.9) Active confirmed Problem 50652577 Idiopathic peripheral neuropathy (G60.9) Active confirmed Problem Mononeuropathy of lower limb (789319398) Neuritis of left foot (G57.92) Active confirmed Problem 072979677 Hammertoe of left foot (M20.42) Active confirmed Problem 78153590 Osteoporosis without current pathological fracture, unspecified osteoporosis type (M81.0) Active confirmed Problem Localized, primary osteoarthritis of the ankle and/or foot (831364149) Arthritis of joint of lesser toe, left (M19.072) Active confirmed Problem Localized, primary osteoarthritis of the ankle and/or foot (325290830) Arthritis of joint of lesser toe, right (M19.071) Active confirmed Problem 63795123774465066 Skin ulcer of toe of left foot, limited to breakdown of skin (L97.521) Active confirmed Problem 17919705 Essential hypertension (I10) Active confirmed Vital Signs Blood pressure diastolic 56 mm Hg 07/05/2024 Height 5ft 8in in 07/05/2024 Blood pressure systolic 123 mm Hg 07/05/2024 Weight 200 lbs 07/05/2024 BMI 30.41 kg/m2 07/05/2024 Procedures Procedure Date Ordered Date Performed Result Body Sit e 09725-SFQXAIU NAIL, 6 OR MORE 05/23/2024 N/A 48993- Debride <25 sq cm 05/30/2024 N/A 66725-Ncosdalj Plate 06/13/2024 N/A Encounters Encounter Location Date Provider Diagnosis [address] [address] 05/23/2024 Velma Black Pain in right toe(s) M79.674 ; Other hammer toe(s) (acquired), right foot M20.41 ; Arthritis of joint of lesser toe, right M19.071 ; Pain in left toe(s) M79.675 ; Other hammer toe(s) (acquired), left foot M20.42 ; Arthritis of joint of lesser toe, left M19.072 ; Subluxation of metatarsophalangeal joint of toe, initial encounter S93.149A ; Onychomycosis B35.1 ; Neuropathy G62.9 ; Idiopathic peripheral neuropathy G60.9 and Osteoporosis without current pathological fracture, unspecified osteoporosis type M81.[address] [address] 05/30/2024 Velma Black Cellulitis of toe of left foot L03.032 ; Skin ulcer of toe of left foot, limited to breakdown of skin L97.521 ; Hammertoe of left foot M20.42 and Toe pain, left M79.[address] [address] 06/13/2024 Velma Black Cellulitis of toe of left foot L03.032 ; Contusion of right foot, initial encounter S90.31XA ; Skin ulcer of toe of left foot, limited to breakdown of skin L97.521 ; Ingrown nail L60.0 and Pain in right foot M79.[address] [address] 07/05/2024 Velma Black Pain in right toe(s) M79.674 ; Other hammer toe(s) (acquired), right foot M20.41 ; Flat foot [pes planus] (acquired), left foot M21.42 ; Flat foot [pes planus] (acquired), right foot M21.41 ; Pes planus of left foot M21.42 ; Other acquired deformities of right foot M21.6X1 and Other acquired deformities of left foot M21.6X2 [facility] [address] [address] 02/01/2024 [facility] [address] [address] 02/18/2024 [facility] [address] [facility] [address] [facility]/30[facility] [address] 07/05/2024 Velmalolis Woodall [facility] Encounter Date Diagnosis (ICD Code) Assessment Notes Treatment Notes Treatment Clinical Notes Section Notes 05/23/2024 Other hammer toe(s) (acquired), right foot (ICD-10 - M20.41) 05/23/2024 Pain in right toe(s) (ICD-10 - M79.674) 05/30/2024 Cellulitis of toe of left foot (ICD-10 - L03.032) 05/30/2024 Skin ulcer of toe of left foot, limited to breakdown of skin (ICD-10 - L97.521) 06/13/2024 Contusion of right foot, initial encounter (ICD-10 - S90.31XA) 06/13/2024 Cellulitis of toe of left foot (ICD-10 - L03.032) 07/05/2024 Pain in right toe(s) (ICD-10 - M79.674) 07/05/2024 Other hammer toe(s) (acquired), right foot (ICD-10 - M20.41) 07/05/2024 Flat foot [pes planu s] (acquired), left foot (ICD-10 - M21.42) 06/13/2024 Skin ulcer of toe of left foot, limited to breakdown of skin (ICD-10 - L97.521) 05/30/2024 Hammertoe of left fo ot (ICD-10 - M20.42) 05/23/2024 Arthritis of joint o f lesser toe, right (ICD-10 - M19.071) 05/30/2024 Toe pain, left (ICD- 10 - M79.675) 05/23/2024 Pain in left toe(s) (ICD-10 - M79.675) 07/05/2024 Flat foot [pes planu s] (acquired), right foot (ICD-10 - M21.41) 06/13/2024 Ingrown nail (ICD-10 - L60.0) 07/05/2024 Pes planus of left f oot (ICD-10 - M21.42) 06/13/2024 Pain in right foot (ICD-10 - M79.671) 05/23/2024 Other hammer toe(s) (acquired), left foot (ICD-10 - M20.42) 07/05/2024 Other acquired deformities of right foot (ICD-10 - M21.6X1) 05/23/2024 Arthritis of joint o f lesser toe, left (ICD-10 - M19.072) 07/05/2024 Other acquired deformities of left foot (ICD-10 - M21.6X2) 05/23/2024 Subluxation of metatarsophalangeal joint of toe, initial encounter (ICD-10 - S93.149A) 05/23/2024 Onychomycosis (ICD-1 0 - B35.1) 05/23/2024 Neuropathy (ICD-10 - G62.9) 05/23/2024 Idiopathic periphera l neuropathy (ICD-10 - G60.9) 05/23/2024 Osteoporosis without current pathological fracture, unspecified osteoporosis type (ICD-10 - M81.0) Plan Of Treatment Pending Test Test Name Order Date 30012-CYBTKLH NAIL, 6 OR MORE 05/23/2024 30002-Ipcr Destruction, 1-14 06/26/2014 90223-Iyrs Destruction, 1-14 08/07/2014 29501-Ciwq Destruction, 1-14 08/28/2014 79327-Fduleeyu Plate 08/28/2014 96472-Sprbmqcj Plate 06/13/2024 45086- Debride <25 sq cm 05/30/2024 Next Appt Details Provider Name:Velma Woodall , 08/08/2024 10:15:00 AM, [address] [facility], [place], [address], Insurance Providers Payer Name Payer Address Payer Phone Subscriber Number Group Number Insured Name Patient Relationship to Insured Coverage Start Date Coverage End Date Medicare [facility] [employer] [address] [place] [address] [id number] Scarlet Elizabeth Self - patient is the insured [employer] [address] [place] [address] [phone] [id number] Scarlet Elizabeth Self - patient is the insured Medical (General) History Medical History History ICD Code mumps measles chicken pox headaches/migraines broken bones back, hip, knee pain Arthritis Anxiety asthma Hyperlipidemia Depression Hypertension Osteoporosis Psoriasis/eczema Psychiatric disorder Sciatica Sinus conditions CAD (Cholesterol) Cataracts Heart disease High Blood Pressure Numbness Reflux ( GERD) Stomach ulcer Transfusions Bone implants/screws Surgical History Surgery Date(Month/Year) appendectomy breast biopsy
--- OUTSIDE RECORDS SUMMARY | 2024-07-26 11:32 | XMS_ITS ---
Author Organization [facility] Address [address] [place] [address] Care Team Providers Care Campaign Advisor Name Role Phone Vangie Ramachandran Primary Care Provider Unavailabl e Black, Velma Unavailable [phone] Allergies Allergen (clinical drug ingredient) Drug/Non Drug Allergy documented on EMR Reaction Allergy Type Onset Date Status general spinal (uncoded) Unknown Allergy Active codeine Codeine heart palpitations Drug Allergy Active corticosteroid and/or corticosteroid derivative (FN) Corticosteroids Unknown Drug Allergy Active REASON FOR VISIT Painful Toe(s) Medications Medication SIG (Take, Route, Frequency, Duration) Notes Start Date End Date Status ProAir HFA Unknown Montelukast Sodium 10 MG 1 tablet Orally Once a day Active traZODone HCl 50 MG 1 tablet at bedtime as needed Orally Once a day Active Loteprednol Etabonate Active Keflex Active Tramadol & Dietary Manage Prod Unknown Thsqlmwzxalij-WZSI-Rimhmwdrg Unknown Pulmicort Unknown Fish Oil Unknown Fosamax 70 MG Orally Unknow n Pravastatin Sodium 80 MG Orally Unknown Cephalexin 500 MG 1 capsule Orally twi ce a day for 10 days Active Vitamin D3 Active Aspirin Active Calcium + D3 Active Amlodipine & Diet Manage Prod Active Metoprolol Succinate 25 MG 1 capsule Ora lly Once a day Active Spironolactone Activ e eliquis Active Entresto 24-26 MG 1 tablet Orally Twic e a day Active Gabapentin Active Vraylar 1.5 MG 1 capsule Orally Onc e a day Active Ferrous Sulfate Acti ve Magnesium Oxide Acti ve Protonix 40 MG 1 tablet 1/2 to 1 ho ur before morning meal Orally Once a day Active Atorvastatin Calcium 40 MG 1 tablet Oral ly Once a day Active Melatonin 5 MG 1 tablet in the even ing Orally Once a day Active Pepcid 20 MG 1 tablet at bedtime as needed Orally Once a day Active Lexapro 20 MG 1 tablet Orally Once a day Active Folic Acid Active Social History Alcohol Screen Question Answer Notes Did you have a drink containing alcohol in the p ast year? No Points 0 Interpretation Negative Tobacco use other than smoking: Question Answer Notes Are you an other tobacco user? No Problems Problem Type SNOMED Code ICD Code Onset Dates Problem Status W/U Status Risk Notes Problem 15719662 Other acquired deformities of right foot (M21.6X1) Active confirmed Problem 146171024 Other acquired deformities of left foot (M21.6X2) Active confirmed Problem 22368129 Essential hypertension (I10) Active confirmed Vital Signs Height 5ft 8in in 07/05/2024 Weight 200 lbs 07/05/2024 BMI 30.41 kg/m2 07/05/2024 Blood pressure systolic 123 mm Hg 07/05/20 24 Blood pressure diastolic 56 mm Hg 024 Encounters Encounter Location Date Provider Diagnosis [facility] [address] 07/05/2024 Velma Black Pain in right toe(s) M79.674 ; Other hammer toe(s) (acquired), right foot M20.41 ; Flat foot [pes planus] (acquired), left foot M21.42 ; Flat foot [pes planus] (acquired), right foot M21.41 ; Pes planus of left foot M21.42 ; Other acquired deformities of right foot M21.6X1 and Other acquired deformities of left foot M21.6X2 Assessments Encounter Date Diagnosis (ICD Code) Assessment Notes Treatment Notes Treatment Clinical Notes Section Notes 07/05/2024 Pain in right toe(s) (ICD-10 - M79.674) 07/05/2024 Other hammer toe(s) (acquired), right foot (ICD-10 - M20.41) 07/05/2024 Flat foot [pes planus] (acquired), left foot (ICD-10 - M21.42) 07/05/2024 Flat foot [pes planus] (acquired), right foot (ICD-10 - M21.41) 07/05/2024 Pes planus of left foot (ICD-10 - M21.42) 07/05/2024 Other acquired deformities of right foot (ICD-10 - M21.6X1) 07/05/2024 Other acquired deformities of left foot (ICD-10 - M21.6X2) Plan Of Treatment Next Appt Details Follow Up: prn, Reason: Provider Name:Velma A Jose C , 08/08/2024 10:15:00 AM, [address] [facility], [place], [address], Progress Notes * Scarlet ELIZABETH MDOB:[birth year] (74 yo F)Acc No.[id number]:07/05/2024 Progress Note Patient:?Scarlet ELIZABETH Provider:?Velma Woodall DPM :1950???Age:74 Y???Sex:Female D ate:07/05/2024 Address:[address] [place], [place] [id number] Pcp:Vangie Ramachandran Subjective: * Chief Complaints: * ???Painful Toe(s) * HPI: ???Toe pain:?Nature:?tenderness.?Location:?Right foot, 2nd toe.?Duration:?, several days.?Course:?worse.?Aggravated by:?any pressure, shoes.?Treatments:?rest/alter normal daily activity, change in shoes.? * Medical History:? * Surgical History:?appendecto my breast biopsy * Hospitalization/Major Diagno stic Procedure:?Denies Past Hospitalization * Family History:?Mother: dece ased, diagnosed with Unspecified essential hypertension.?Father: , foot problems, diagnosed with Unspecified essential hypertension.? * Social History:?Tobacco Use:?Tobacco Use/Smoking?Are you a:: former smoker , Additional Findings: Tobacco Non-User: Ex-cigarette smoker.?Tobacco use other than smoking?Are you an other tobacco user??No ???Drugs/Alcohol:?Drugs?Have you used drugs other than those for medical reasons in the past 12 months??No ?Alcohol Screen?Did you have a drink containing alcohol in the past year??No ?Points?0 ?Interpretation?Negative ???Miscellaneous:?Caffeine: yes, frequency:, 1-2 cups per day. ?Children: yes, 4. ?Marital status: . ?Occupation: Retired. * Medications:?TakingKeflex Lo teprednol Etabonate traZODone HCl 50 MG Tablet 1 tablet at bedtime as needed Orally Once a day Montelukast Sodium 10 MG Tablet 1 tablet Orally Once a day Lexapro 20 MG Tablet 1 tablet Orally Once a day Pepcid 20 MG Tablet 1 tablet at bedtime as needed Orally Once a day Melatonin 5 MG Tablet 1 tablet in the evening Orally Once a day Atorvastatin Calcium 40 MG Tablet 1 tablet Orally Once a day Folic Acid Protonix 40 MG Tablet Delayed Release 1 tablet 1/2 to 1 hour before morning meal Orally Once a day Magnesium Oxide Ferrous Sulfate Vraylar 1.5 MG Capsule 1 capsule Orally Once a day Gabapentin Entresto 24-26 MG Tablet 1 tablet Orally Twice a day eliquis Spironolactone Metoprolol Succinate 25 MG Capsule ER 24 Hour Sprinkle 1 capsule Orally Once a day Amlodipine & Diet Manage Prod Calcium + D3 Aspirin Vitamin D3 Cephalexin 500 MG Capsule 1 capsule Orally twice a day Taking Keflex Taking Loteprednol Etabonate Taking traZODone HCl 50 MG Tablet 1 tablet at bedtime as needed Orally Once a day Taking Montelukast Sodium 10 MG Tablet 1 tablet Orally Once a day Taking Lexapro 20 MG Tablet 1 tablet Orally Once a day Taking Pepcid 20 MG Tablet 1 tablet at bedtime as needed Orally Once a day Taking Melatonin 5 MG Tablet 1 tablet in the evening Orally Once a day Taking Atorvastatin Calcium 40 MG Tablet 1 tablet Orally Once a day Taking Folic Acid Taking Protonix 40 MG Tablet Delayed Release 1 tablet 1/2 to 1 hour before morning meal Orally Once a day Taking Magnesium Oxide Taking Ferrous Sulfate Taking Vraylar 1.5 MG Capsule 1 capsule Orally Once a day Taking Gabapentin Taking Entresto 24-26 MG Tablet 1 tablet Orally Twice a day Taking eliquis Taking Spironolactone Taking Metoprolol Succinate 25 MG Capsule ER 24 Hour Sprinkle 1 capsule Orally Once a day Taking Amlodipine & Diet Manage Prod Taking Calcium + D3 Taking Aspirin Taking Vitamin D3 Taking Cephalexin 500 MG Capsule 1 capsule Orally twice a day UnknownPravastatin Sodium 80 MG Tablet Orally Fosamax 70 MG Tablet Orally Fish Oil Pulmicort Rrsqocpexgrlx-UECD-Jxvldmglq Tramadol & Dietary Manage Prod ProAir HFA Medication List reviewed and reconciled with the patientUnknown Pravastatin Sodium 80 MG Tablet Orally Unknown Fosamax 70 MG Tablet Orally Unknown Fish Oil Unknown Pulmicort Unknown Wxicwavfhfaoh-QLFD-Qfywwqvtc Unknown Tramadol & Dietary Manage Prod Unknown ProAir HFA Medication List reviewed and reconciled with the patient * Allergies:?Codeine: heart pa lpitationsCorticosteroidsgeneral spinalyes[Allergies Verified] Objective: * Vitals:?Ht: 5ft 8in, Wt:200, BMI:30.41, Shoe size: 10, BP:123/56mm Hg, Ht-cm: 172.72 cm, Wt-k.72 kg. * Examination: ???General Examination: ?GENERAL APPEARANCE:?pleasant, alert, well nourished, well developed, well hydrated, with good attention to hygene/body habitus, and in no acute distress.?ORIENTED:?person,place, and time.?Neurological: ?SENSORY:?Neurological exam demonstrates reduced sharp/dull pin prick discrimination reduced light touch sensation reduced vibration sensation reduced proprioception sensation in a stocking fashion 5.07 monofilament test performed at plantar aspects of 5 varied sites per foot shows sensation plantar aspects absent at Forefoot B/L.?TINEL'S COMPRESSION:?Negative tarsal tunnel, avis pedis, and medial calcaneal nerves, B/L.?Orthopedic: ?MUSCLE STRENGTH:?5/5 all groups in a symmetrical fashion, B/L.?GAIT ABNORMALITY:?Pronated, abducted angle and base of gate, B/L.?FOOT MORPHOLOGY:?Pes Planus structure, Semi-rigid, B/L.?DIGITAL DEFORMITIES:?Digital contracture, PIPJ, 2-5 B/L, incompl-reducible with WB, or to push-up test, no over, nor underlapping, Reveals pain/swelling/redness/enlargement of DIPJ T6.?Dermatologic: ?SKIN FINDINGS:?Skin exam reveals normal color, texture, elasticity, and turgor. There are no masses, nor excrescences. The interspaces are clear, B/L, Skin exam reveals Keratotic lesion(s) located at distal tip T6 POP and erythema noted.? * Physical Examination:?L2999 Supplies:?Including:?Atkins Comfort Plus ($60).? Assessment: * Assessment: 1.?Pain in right toe(s) - M7 9.674???2.?Other hammer toe(s) (acquired), right foot - M20.41 (Primary)???3.?Flat foot [pes planus] (acquired), left foot - M21.42???4.?Flat foot [pes planus] (acquired), right foot - M21.41?? 5.?Pes planus of left foot - M21.42???6.?Other acquired deformities of right foot - M21.6X1???7.?Other acquired deformities of left foot - M21.6X2??? Plan: * Treatment: * Procedure Codes:? * Preventive Medicine:? ??Counseling:?Discussion:?-13: Office or other outpatient visit for the evaluation and management of an established patient, which required a medically appropriate history and/or examination and LOW level of DECISION MAKING for: 1 STABLE ACUTE UNCOMPLICATED PROBLEM, 2 OR MORE MINOR PROBLEMS, OR 1 STABLE CHRONIC PROBLEM, THAT POSE(S) A LOW RISK FOR MORBIDITY/MORTALITY. The visit on the day of the encounter encompassed interpreting the data and educating the patient as to the nature of their condition, treatment options available according to their individual PMH, meds, allergies, and overall health/living conditions, as well as any potential risks or complications that may occur from a failure to adhere to, and participate in, the recommended course of therapy. The discussion included a complete verbal, and/or written explanation of the examination results, any x-rays taken, the proposed diagnosis, and outline of the treatment plan. A schedule for future care needs was also explained. The patient verbalized an understanding of the instructions at this time and agreed to be an active participant in their treatment. If the patient should think of any questions or concerns after the visit, I have encouraged the patient to call the office.?BioMech.:?I discussed the Pts foot biomechanics with them and how it relates to their problem, Pt is fitted for an OC orthotic to help address their issues..?Orthotic Dispensing:?The OTC inserts are properly fitted to the patient's feet in both weight-bearing and non-weight bearing attitudes. The patient was instructed to gradually increase the amount of time they are wearing the orthoses, starting with one hour the first day and thereon progressively increasing the amount of time used until they are comfortable to be worn all day and with all activities. They were asked to call the office if any signs of skin irritation were noted including redness, blistering or callous formation. The patient verbally indicated a full understanding of all the above information.? * Follow Up:?prn * Images: * Sign off status: Completed true * Provider:?Velma Woodall DPM Date:?2023 Generated for Marielle weaver/Melina/Carlo on:?07/26/2024 11:32 AM EST History and Physical Notes * HPI (History of Present Illness) Category Sub-Category Detail Notes Category Not es Toe pain Nature: tenderness Location: Right foot, 2nd toe Duration: , several days Course: worse Aggravated by: any pressure, shoes Treatments: rest/alter normal da gurpreet activity, change in shoes Physical Examination Category Sub-Category Detail Notes Section Note s L2999 Supplies Including: Atkins Comfort Plus ($60) Examination Category Sub-Category Detail Notes Category Not es Neurological SENSORY: Neurological exa m demonstrates reduced sharp/dull pin prick discrimination reduced light touch sensation reduced vibration sensation reduced proprioception sensation in a stocking fashion 5.07 monofilament test performed at plantar aspects of 5 varied sites per foot shows sensation plantar aspects absent at Forefoot B/L TINEL'S COMPRESSION: Negative tarsal clara shavon, avis pedis, and medial calcaneal nerves, B/L Dermatologic SKIN FINDINGS: Skin exam reveal s normal color, texture, elasticity, and turgor. There are no masses, nor excrescences. The interspaces are clear, B/L, Skin exam reveals Keratotic lesion(s) located at distal tip T6 POP and erythema noted Orthopedic GAIT ABNORMALITY: Pronated, abducted angl e and base of gate, B/L FOOT MORPHOLOGY: Pes Planus structure , Semi-rigid, B/L DIGITAL DEFORMITIES: Digital contracture , PIPJ, 2-5 B/L, incompl-reducible with WB, or to push-up test, no over, nor underlapping, Reveals pain/swelling/redness/enlargement of DIPJ T6 MUSCLE STRENGTH: 5/5 all groups in a symmetrical fashion, B/L General Examination GENERAL APPEARANCE: pleasant , alert, well nourished, well developed, well hydrated, with good attention to hygene/body habitus, and in no acute distress ORIENTED: person,place, and ti me
--- OUTSIDE RECORDS SUMMARY | 2024-07-26 11:32 | XMS_ITS ---
[facility] Address [address] [place] [address] Care Team Providers Care Upholsterer Helper Name Role Phone Vangie Ramachandran Primary Care Provider Unavailabl e Black, Velma Unavailable [phone] Allergies Allergen (clinical drug ingredient) Drug/Non Drug Allergy documented on EMR Reaction Allergy Type Onset Date Status general spinal (uncoded) Unknown Allergy Active codeine Codeine heart palpitations Drug Allergy Active corticosteroid and/or corticosteroid derivative (FN) Corticosteroids Unknown Drug Allergy Active REASON FOR VISIT Skin problem(s), Ingrown Nail, Foot pain Medications Medication SIG (Take, Route, Frequency, Duration) Notes Start Date End Date Status ProAir HFA Unknown Tramadol & Dietary Manage Prod Unknown Nexkzytygcxqz-LJPV-Fqegfbtql Unknown Pulmicort Unknown Fish Oil Unknown Vitamin D3 Active Aspirin Active Fosamax 70 MG Orally Unknow n Pravastatin Sodium 80 MG Orally Unknown Cephalexin 500 MG 1 capsule Orally twi ce a day for 10 days Active Calcium + D3 Active Amlodipine & Diet Manage Prod Active Metoprolol Succinate 25 MG 1 capsule Ora lly Once a day Active Spironolactone Activ e eliquis Active Magnesium Oxide Acti ve Entresto 24-26 MG 1 tablet Orally Twic e a day Active Gabapentin Active Vraylar 1.5 MG 1 capsule Orally Onc e a day Active Ferrous Sulfate Acti ve Protonix 40 MG 1 tablet 1/2 to 1 ho ur before morning meal Orally Once a day Active Folic Acid Active Atorvastatin Calcium 40 MG 1 tablet Oral ly Once a day Active Melatonin 5 MG 1 tablet in the even ing Orally Once a day Active Pepcid 20 MG 1 tablet at bedtime as needed Orally Once a day Active Keflex Active Lexapro 20 MG 1 tablet Orally Once a day Active Montelukast Sodium 10 MG 1 tablet Orally Once a day Active traZODone HCl 50 MG 1 tablet at bedtime as needed Orally Once a day Active Loteprednol Etabonate Active Social History Alcohol Screen Question Answer Notes Did you have a drink containing alcohol in the p ast year? No Points 0 Interpretation Negative Tobacco use other than smoking: Question Answer Notes Are you an other tobacco user? No Vital Signs Height 5ft 8in in 06/13/2024 Weight 200 lbs 06/13/2024 BMI 30.41 kg/m2 06/13/2024 Procedures Procedure Date Ordered Date Performed Result Body Sit e 29866-Myrfzggj Plate 06/13/2024 N/A Encounters Encounter Location Date [facility] [address] [place] [address] 06/13/2024 Velma Woodall Cellulitis of toe of left foot L03.032 ; Contusion of right foot, initial encounter S90.31XA ; Skin ulcer of toe of left foot, limited to breakdown of skin L97.521 ; Ingrown nail L60.0 and Pain in right foot M79.671 Assessments Encounter Date Diagnosis (ICD Code) Assessment Notes Treatment Notes Treatment Clinical Notes Section Notes 06/13/2024 Cellulitis of toe of left foot (ICD-10 - L03.032) 06/13/2024 Contusion of right foot, initial encounter (ICD-10 - S90.31XA) 06/13/2024 Skin ulcer of toe of left foot, limited to breakdown of skin (ICD-10 - L97.521) 06/13/2024 Ingrown nail (ICD-10 - L60.0) 06/13/2024 Pain in right foot (ICD-10 - M79.671) Plan Of Treatment Pending Test Test Name Order Date 18341-Yembujst Plate 06/13/2024 Next Appt Details Follow Up: as scheduled, Iveth son: Provider Name:Velma Woodall , 08/08/2024 10:15:00 AM, [address], [facility], [address], Procedure Notes * Category Sub-Category Detail Notes Nail Avulsion Procedure A fine sterile e levator was placed between the eponychium, nail fold, and nail plate to separate the structures. A sterile nail splitter, and/or sterile 316 blade, was then used to longitudinally section the nail along its entire length through the eponychium to the area under the nail fold. The offending portion of nail was from the nail bed with a rolling action and then removed with a hemostat. No underlying bone was identified. There was minimal bleeding as hemostasis was achieved through the temporary use of either a digital tourniquet or the aforementioned local with epinephrine. A bacitracin sterile dressing was applied. Local wound aftercare instructions were discussed and dispensed. The patient was informed of both conservative and future surgical procedures to prevent recurrence. Tylenol or Motrin was recommended for pain or discomfort (47809), Pt DEFERS matricectomy Anesthesia , was accomplished T OPICALLY with Lidocaine Hydrochloride Jelly 2 percent Location , Lateral nail borde r, T5 Progress Notes * Scarlet ELIZABETH MDOB:[birth year] (73 yo F)Acc No.[id number]:06/13/2024 Progress Notes Patient:?Scarlet ELIZABETH Provider:?Velma Woodall DPM :1950???Age:73 Y???Sex:Female D ate:06/13/2024 Address:[address] [place], [place] [id number] Pcp:Vangie Ramachandran Subjective: * Chief Complaints: * ???Skin problem(s)Ingrown Na ilFoot pain * HPI: ???Skin problems:?Nature:?redness, swelling , tender.?Location:?5th , Left.?Duration:?, several days.?Course:?, improved.?Treatments:?, medication (keflex ) and woundcare.?Foot Pain:?Nature:?aching?,?bruising?, discolor,?swelling?,?tenderness?,?throbbing.?Location:?RIGHT.?Duration:?since DOI [].?Onset:?states trauma (pt fell getting out of bed?).?Aggravated:?any pressure , standing, shoes.?Treatments:?rest/alter normal daily activity, ice.? * ROS:?General/Constitutional:?Nausea?denies.?Vomiting?denies.?Hunger Thirst?denies.?Loss appetite?denies.?Chills?denies.?Fatigue?admits.?Fever?denies.?Night Sweats?denies.?Unexplained weight loss?denies.?Unexplained weight gain?denies.?HEENTM:?Dentures?admits.?Dizziness?denies.?Glasses/contacts?admits.?Retinopathy?de nies.?Blurred/double vision?denies.?TMJ?denies.?Discharge/drainage?denies.?Implants?denies.?Sore throat?denies.?Dental implants?denies.?Hard of hearing ?admits.?Difficulty chewing/swallowing/speaking?denies.?Nose bleeds?admits.?Sore mouth?denies.?Respiratory:?On Oxygen?denies.?Pneumonia/pleurisy?denies.?Bronchitis?denies.?Emphysema?denies.?C oughing?denies.?Cough blood?denies.?Shortness of breath?denies.?Wheezing?admits.?Cardiovascular:?Pacemaker?denies.?MVP?denies.?WPW?denies.?CHF?denies.?Heart attack?denies.?Septal defect?denies.?Rapid beat?denies.?Chest pain ?denies.?Atrial Fib.?denies.?Murmur/Palpitations?denies.?Gastrointestinal:?Hemorrhoids?denies.?Stomach/Abdominal pain?denies.?Dark blood stool?denies.?Irritable bowel ?denies.?Constipation?denies.?Diarrhea?denies.?Hematology:?Swelling?denies.?Clots?denies.?Varicose Veins?denies.?Bruising?denies.?Bleeding problem?denies.?Genitourinary:?Blood urine?denies.?Frequent/Painfu/urination/bladder control?denies.?Kidney stones?denies.?Infection (UTI)?denies.?Nephropathy?admits.?sex trans dis (STD)?denies.?Prostate?denies.?Musculoskeletal:?Hammertoes?admits.?Bunions?denies.?Back Pain?admits.?Muscle Cramps/ Resting?admits.?Muscle cramps / walking?admits.?Generalized aches and pains?denies.?Weakness?admits.?Integ.:?Thacker?denies.?Scars?admits.?Corns/calluses?admits.?Ingrown nails?, admits.?Painful nails?,admits.?Open Sores?denies.?Rashes?denies.?Neurologic:?Difficulty sleeping?denies.?Brain disorder?denies.?Numbness?admits.?Balance trouble?denies.?Confusion?denies.?Fainting/blackouts?denies.?Tingling?admits.?Tr emors?denies.? * Medical History:? * Surgical History:?appendecto my [...] 70 MG Tablet Orally Fish Oil Pulmicort Swdtsvfyqpxai-HLLX-Ksqzitjkl Tramadol & Dietary Manage Prod ProAir HFA Medication List reviewed and reconciled with the patientUnknown Pravastatin Sodium 80 MG Tablet Orally Unknown Fosamax 70 MG Tablet Orally Unknown Fish Oil Unknown Pulmicort Unknown Trayzdqasijna-ATTW-Nawdrcvxa Unknown Tramadol & Dietary Manage Prod Unknown ProAir HFA Medication List reviewed and reconciled with the patient * Allergies:?Codeine: heart pa lpitationsCorticosteroidsgeneral spinalyes[Allergies Verified] Objective: * Vitals:?Ht: 5ft 8in, Wt:200, BMI:30.41, Shoe size: 10, Ht-cm: 172.72 cm, Wt-k.72 kg. * Examination: ???General Examination: ?GENERAL APPEARANCE:?pleasant, alert, well nourished, well developed, well hydrated, with good attention to hygene/body habitus, and in no acute distress.?ORIENTED:?person,place, and time.?Dermatologic: ?SKIN FINDINGS:? Skin shows sign(s) of, localized cellulitis without lymphangitis extending proximally to the level of the 5th MPJ left Resolved.?ULCER:?Medial, T4, Resolved.?Neurological: ?SENSORY:?Neurological exam demonstrates reduced sharp/dull pin prick discrimination reduced light touch sensation reduced vibration sensation reduced proprioception sensation in a stocking fashion 5.07 monofilament test performed at plantar aspects of 5 varied sites per foot shows sensation plantar aspects absent at Forefoot B/L.?TINEL'S COMPRESSION:?Negative tarsal tunnel, avis pedis, and medial calcaneal nerves, B/L.?BABINSKI REFLEX:?Absent, B/L.?Orthopedic: ?GAIT ABNORMALITY:?antalgic.?FOOT MORPHOLOGY:?Reveals pain, swelling, ecchymosis right midfoot? no Pain on ROM.?DIGITAL DEFORMITIES:?Digital contracture, PIPJ, 2-5 B/L, incompl-reducible with WB, or to push-up test, no over, nor underlapping.?Ingrown Nail: ?INSPECTION:?Reveals nail incurvation, pain on palpation, groove hypertrophy, , Lateral nail border, T5.?X-Rays - IMAGING REPORT: ?Views:?Pt Defers X-Rays.? Assessment: * Assessment: 1.?Contusion of right foot, initial encounter - S90.31XA (Primary)???Specify :Acute problem, Uncomplicated (3)???2.?Cellulitis of toe of left foot - L03.032???Specify :Resolved???3.?Skin ulcer of toe of left foot, limited to breakdown of skin - L97.521???Specify :Resolved???4.?Ingrown nail - L60.0???Specify :T5???5.?Pain in right foot - M79.671??? Plan: * Treatment: * Procedures:?Nail Avulsion:?Location?, Lateral nail border, T5.?Anesthesia?, was accomplished TOPICALLY with Lidocaine Hydrochloride Jelly 2 percent.?Procedure?A fine sterile elevator was placed between the eponychium, nail fold, and nail plate to separate the structures. A sterile nail splitter, and/or sterile 316 blade, was then used to longitudinally section the nail along its entire length through the eponychium to the area under the nail fold. The offending portion of nail was from the nail bed with a rolling action and then removed with a hemostat. No underlying bone was identified. There was minimal bleeding as hemostasis was achieved through the temporary use of either a digital tourniquet or the aforementioned local with epinephrine. A bacitracin sterile dressing was applied. Local wound aftercare instructions were discussed and dispensed. The patient was informed of both conservative and future surgical procedures to prevent recurrence. Tylenol or Motrin was recommended for pain or discomfort (85803), Pt DEFERS matricectomy.? * Procedure Codes:?72557 Avuls ion Plate, Modifiers: T5 * Preventive Medicine:? ??Counseling:?Discussion:?-14: Office or other outpatient visit for the evaluation and management of an established patient, which required a medically appropriate history and/or examination and MODERATE level of DECISION MAKING for: 1 OR MORE CHRONIC PROBLEM(S) THATS WORSENING, 2 STABLE CHRONIC PROBLEMS, A NEWLY DIAGNOSED PROBLEM WITH UNCERTAIN PROGNOSIS, AN ACUTE COMPLICATED INJURY WITH MULTIPLE TREATMENT OPTIONS, OR AN ACUTE PROBLEM WITH ACCOMPANYING SYSTEMIC SYMPTOMS, THAT POSE(S) A MODERATE RISK OF MORBIDITY. THIS CONDITION MAY ALSO INCLUDE RX DRUG MANAGEMENT, OR A DECISON FOR MINOR SURGERY. The visit on the day of the [...] have encouraged the patient to call the office.?F/u Visit:?Patients podiatric issue has improved, they should call the office with any future issues or concerns with the 5th digit left.?P.R.I.C.E.:?The patient was counseled on the use of P.R.I.C.E. and NSAIDS (if well tolerated) to aid in the recovery from their painful condition. If pain increases recomm. for pt to come in for x-rays, Recommended Topical analgesics including Biofreeze/Aspercream/Voltaren gel.? * Follow Up:?as scheduled * Images: * Sign off status: Completed true * Provider:?Velma Woodall DPM Date:?2023 Generated for Marielle weaver/Melina/eTransmitting on:?07/26/2024 11:32 AM EST History and Physical Notes * HPI (History of Present Illness) Category Sub-Category Detail Notes Category Not es Skin problems Nature: redness , swelling , tender Location: 5th , Left Duration: , several days Course: , improved Treatments: , medication (keflex ) and woundcare Foot Pain Nature: aching , bruisin g , discolor, swelling , tenderness , throbbing Location: RIGHT Duration: since DOI [] Onset: states trauma (pt fe ll getting out of bed ) Aggravated: any pressure , stand ing, shoes Treatments: rest/alter normal da gurpreet activity, ice Examination Category Sub-Category Detail Notes Category Not es Ingrown Nail INSPECTION: Reveals nail inc urvation, pain on palpation, groove hypertrophy, , Lateral nail border, T5 Neurological SENSORY: Neurological exa m demonstrates reduced sharp/dull pin prick discrimination reduced light touch sensation reduced vibration sensation reduced proprioception sensation in a stocking fashion 5.07 monofilament test performed at plantar aspects of 5 varied sites per foot shows sensation plantar aspects absent at Forefoot B/L BABINSKI REFLEX: Absent, B/L TINEL'S COMPRESSION: Negative tarsal clara shavon, avis pedis, and medial calcaneal nerves, B/L Dermatologic SKIN FINDINGS: Skin shows sign( s) of, localized cellulitis without lymphangitis extending proximally to the level of the 5th MPJ left Resolved ULCER: Medial, T4, Resolved Orthopedic GAIT ABNORMALITY: antalgic FOOT MORPHOLOGY: Reveals pain, swelli ng, ecchymosis right midfoot no Pain on ROM DIGITAL DEFORMITIES: Digital contracture , PIPJ, 2-5 B/L, incompl-reducible with WB, or to push-up test, no over, nor underlapping General Examination GENERAL APPEARANCE: pleasant , alert, well nourished, well developed, well hydrated, with good attention to hygene/body habitus, and in no acute distress ORIENTED: person,place, and ti me X-Rays - IMAGING REPORT Views: Pt Defers X-Rays
--- OUTSIDE RECORDS SUMMARY | 2024-07-26 11:32 | XMS_ITS | Continuity of Care Document ---
Author Organization [facility] Address [address] [place] [address]- Support Name Relationship Address Phone BECKY, KWOK [...] BECKY, KWOK Personal Relationship Unknown U navailable EBCKY, KWOK Personal Relationship Unknown U navailable BECKY, [...] KWOK Personal Relationship Unknown U navailable BECKY, RISSA Personal Relationship Unknown U chencho PENA, RISSA Personal Relationship Unknown U chencho PENA, RISSA Personal Relationship Unknown U darwinailkatrin Care Team Providers Care Boatswains Mate Name Role Phone Vangie Ramachandran MD Primary Care Physician Encounter [facility] Date(s): 05/22/24 - 06/25/[address] [address] Attending Physician: Kelsie Mathias MD Admitting Physician: Kelsie Mathias MD Referring Physician: Kelsie Mathias MD Encounter Type: Pre-Outpt Allergies, Adverse Reactions, Alerts Substance Criticality Severity [...] number: 1 dexamethasone/neomycin/polymyxin B ophthalmic 1 mg-3.5 mg-98060 u/gm ointment APPLY IN THE AFFECTED EYE(S) [...] 4:09:00 PM EDT, Route to Pharmacy Electronically, [facility], Partial fill upon patient request if [...] Active 1Initial Weight 03/13/16 - 238.2 lbs. Social History Social History Type Response Smoking Status Former smoker; Other : Quit 1990; entered on: 04/07/16 Sex Sex Representation Female (finding) Patient Care team information Care Team Personnel Name: Radha Stoner Position: [facility] [place] RN Member Role: Primary Care Nurse Name: Leanne See RN Position: S RN Member Role: Primary Care Nurse Name: Claudio Powers RN Position: S RN Member Role: Primary Care Nurse Name: Katia Willard RN Position: [facility] RN Member Role: Primary Care Nurse Name: Kiana Sharma RN Position: [facility] RN Member Role: Primary Care Nurse Name: Darlin Arrington RN Position: [facility] RN Member Role: Primary Care Nurse Name: Vangie Ramachandran MD Position: [facility] Outreach Member Role: PCP Address: [address] [place] [address] Telecom: Name: Suzie Pineda RN Position: [facility] RN Member Role: Primary Care Nurse Name: Vladislav Fiore RN Position: [facility] RN Member Role: Primary Care Nurse Name: Sola Harrison RN Position: [facility] SN RN Member Role: Primary Care Nurse Name: Serena Crowe RN Position: [facility] RN Member Role: Primary Care Nurse Name: Rosette Keenan RN Position: [facility] RN Member Role: Primary Care Nurse Name: Tonya Martinez RN Position: [facility] RN Member Role: Primary Care Nurse Care Team Related Persons Name: ROGERIO LUIS Name: RISSA PENA Insurance Providers Guarantor name: [facility] Plan Information #: 2 Payer: [employer] Member Number: [id number] Policy Number: NA Group Number: [id number] Health Plan Information #: 1 Payer: MEDICARE PART B OUTPT Member Number: [id number] Policy Number: NA Group Number: [id number]
--- OUTSIDE RECORDS SUMMARY | 2024-07-26 11:33 | XMS_ITS | Data Portability ---
Author Organization [place] [facility] Way[facility] [place] Address [address] [place] [address] Care Team Providers Care Truer Pinion And Wheel Name Role Phone MELONY VELASQUEZ Referring Provider MELONY VELASQUEZ Primary Care Provider Assessment Encounter Date Assessment Date Assessment LastModified by Organization Details LastModified Time 07/14/2023 07/14/2023 Karen has a cellulitis with likely deep infection in the left knee. She will be sent for an ESR and CRP. No fluid was obtained during attempted joint aspiration. Patient will proceed with antibiotics as prescribed by her primary care provider and follow-up next week with Dr. Guerrero. If she has any increased swelling fevers or chills, she will go to the ER. [email or web address] Not available 07/24/2023 09:27:55 07/23/2023 07/23/2023 HPI : ? Thank you for the pleasure of requesting a consultation on this patient. Patient comes in complaining of left knee pain. Patient has a complex history regarding her left knee. 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 This was complicated by infection. She underwent revision total knee replacement with distal femur replacement [place] [address] Scooter Ramirez. She has been on suppressive antibiotic therapy with Keflex 500 mg BID. she was seen in our office last week by Eric Hayes. She was noted to have an area of redness on the lateral aspect of her knee. She was having some pain associated with this. Eric Hayes attempted to aspirate the knee, but there was no fluid obtained. He did get her ESR and CRP, these were elevated she came for follow-up visit with me today. She notes improvements in her symptoms. She states the pain is improving. She states the area of redness is improving as well. Review of systems is negative for rapidly progressive neurological disorder, chest pain, shortness of breath, fevers, chills, or any signs of active or persistent local or systemic infection. Physical Exam : Patient is well nourished, well-developed, in no acute distress, with appropriate mood and affect. The patient is oriented to time, place, and person. Respirations are even and unlabored. Gait evaluation does reveal a limp. There is no inguinal adenopathy. Examination of the contralateral knee shows normal range of motion, strength, no tenderness, and intact skin. The affected limb is well-perfused, shows a grossly normal motor and sensor exam. There is an area of erythema in the anterior lateral aspect of the knee. There is some hardness associated with this. It is approximately 3 cm in diameter. No significant knee effusion noted. Left knee motion is is not significantly reduced and does not cause significant pain. The knee moves from 20-110 degrees. The knee is stable within that [id number] to AP and ML stress. The alignment of the knee is neutral. Muscle strength is normal. Pedal pulses are palpable. Hip examination, including flexion and internal rotation, was negative in that groin pain was not produced. Imaging : Radiographs of the left knee from June 2023 demonstrates a left distal femoral replacement with long-stem cemented components. No patella visible. No signs of hardware related complications. 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 She had an area of the erythema and pain that developed over the last couple weeks. She notes that it is now improving. She has minimal pain. She notes the erythema is improving. I have still concern for the possibility of recurrent infection. I once again tried to reaspirate the knee today. I was not able to obtain any fluid. Given her symptomatic improvement and no significant effusion, I think it is reasonable for us to watch her symptomatically closely. She will keep us updated if she has increasing pain, swelling, drainage or any other infectious symptoms. His preference is to follow-up with Dr. Markie Ramirez. He should be starting his new practice within the next mo we will try to get her set up with Dr. Ramirez. If not she can follow-up with me in 1 month. [email or web address] Not available 07/23/2023 10:08:52 Plan of Treatment Reminders Order Date Submit Date Provider Last Modified By Organization Details Last Modified Time Details Appointments None recorded. Lab ESR (erythrocyt e sedimentati on rate), blood - Joint pain status post arthroplast y, evaluate for joint infection 2022 023 [email or web address] Not available 4 11:53:03 C-reactive protein, quantitativ e, serum or plasma - Joint pain status post arthroplast y, evaluate for joint infection 2022 023 MARIAM Not available 3 05:22:50 Referral None recorded. Procedures None recorded. Surgeries None recorded. Imaging XR, knee, 3 view 2022 023 [email or web address] [facility], [address], [place], [address], 3 10:42:17 Medication Orders None recorded. Patient TargetsNo targets recorded. Patient Instructions Encounter Date Encounter Id Patient Instructions Last Modified By Organization Details Last Modified Time 07/14/2023 [id number] Radiographs: AP, lateral, patellar views of the {{Right Left*}} knee were obtained in the {{[place]} } which demonstrate a left distal femoral replacement with long-stem cemented components. No patella visible. No signs of hardware related complications. X-ray interpretation by: [email or web address] Not available 07/24/2023 09:27:45 Reason for Referral None Reported. Results Created Date Observation Date Name Description Value Unit Range Abnormal Flag Note LastModifiedBy Organization Detail LastModifiedTime Result Notes None recorded. 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 Procedures Surgical History Date Name Laterality Status Provider Name and Address Organization Details Recorded Time 3 RAMON Knee Inj/Asp completed KINSEY HAYES PA-C [address], [place], [address], [place] [facility], [facility] 07/24/2023 09:24:46 tonsilectomy/ad enoids completed [facility], [facility] 07/14/2023 10:09:43 breast procedure completed [facility], [facility] 07/14/2023 10:09:56 total knee replacement completed [facility] 07/14/2023 10:10:40 Imaging Results None recorded. Procedure Notes None recorded. Medical Equipment None Reported. Allergies No known drug allergies Medications Name Sig Start Date Stop Date Status Note LastModified by Organization Details LastModified Time cap-2 k-10 pain formulation versatile Apply 1-3 grams to the affected area 3-4 times daily (FEET) active Not Available Not Available No t Available medbox status USE DIRECTED active Not Available Not Available No t Available atorvastatin 40 mg tablet TAKE ONE TABLET BY MOUTH AT BEDTIME active Not Available Not Available No t Available doxycycline hyclate 100 mg capsule TAKE ONE CAPSULE BY MOUTH TWICE DAILY UNTIL FINISHED active Not Available Not Available No t Available trazodone 50 mg tablet TAKE TWO TABLETS EVERY DAY AT BEDTIME active Not Available Not Available N ot Available amiodarone 200 mg tablet TAKE ONE TABLET EVERY MORNING active Not Available Not Available No t Available sucralfate 1 gram tablet TAKE ONE TABLET EVERY NIGHT AT BEDTIME active Not Available Not Available N ot Available gabapentin 400 mg capsule TAKE TWO CAPSULES EVERY DAY AT BEDTIME active Not Available Not Available N ot Available thiamine HCl (vitamin B1) 100 mg tablet TAKE ONE TABLET EVERY MORNING active Not Available Not Available No t Available aspirin 81 mg tablet,delay ed release TAKE ONE TABLET EVERY MORNING active Not Available Not Available No t Available spironolacto ne 25 mg tablet TAKE ONE-HALF TABLET EVERY MORNING active Not Available Not Available No t Available calcium 600 mg (as calcium carbonate 1,500 mg) tablet TAKE ONE TABLET EVERY MORNING active Not Available Not Available No t Available alprazolam 0.25 mg tablet TAKE ONE TABLET THREE TIMES DAILY NEEDED active Not Available Not Available No t Available famotidine 20 mg tablet TAKE ONE TABLET IN THE MORNING AND EVENING NEEDED active Not Available Not Available No t Available magnesium oxide 400 mg (241.3 mg magnesium) tablet TAKE TWO TABLETS TWICE DAILY IN THE MORNING AND AT BEDTIME active Not Available Not Available N ot Available ascorbic acid (vitamin C) 250 mg tablet TAKE ONE TABLET EVERY MORNING active Not Available Not Available No t Available cephalexin 500 mg capsule TAKE ONE CAPSULE TWICE DAILY IN THE MORNING AND AT BEDTIME active Not Available Not Available N ot Available pantoprazole 40 mg tablet,delay ed release TAKE ONE TABLET TWICE DAILY IN THE MORNING AND AT BEDTIME NEEDED active Not Available Not Available No t Available ferrous sulfate 325 mg (65 mg iron) tablet TAKE ONE TABLET TWICE DAILY IN THE MORNING AND AT BEDTIME active Not Available Not Available N ot Available folic acid 1 mg tablet TAKE ONE TABLET EVERY MORNING active Not Available Not Available No t Available montelukast 10 mg tablet TAKE ONE TABLET EVERY NIGHT AT BEDTIME active Not Available Not Available N ot Available gabapentin 100 mg capsule TAKE 1 TO 2 CAPSULES BY MOUTH AT BEDTIME active Not Available Not Available No t Available metoprolol succinate ER 25 mg tablet,exten ded release 24 hr TAKE ONE TABLET EVERY MORNING active Not Available Not Available No t Available loteprednol etabonate 0.5 % eye drops,suspen michael PLACE ONE DROP IN EACH EYE TWICE DAILY active Not Available Not Available Not Available estradiol 0.01% (0.1 mg/gram) vaginal cream APPLY ONE GRAM VAGINALLY EVERY NIGHTLY FOR 2 WEEKS AND THEN USE 1-2 NIGHTS PER WEEK THEREAFTER active Not Available Not Available N ot Available fluticasone propionate 50 mcg/actuatio n nasal spray,suspen michael USE TWO SPRAYS IN EACH NOSTRIL ONCE DAILY active Not Available Not Available N ot Available oxycodone 5 mg tablet TAKE ONE TABLET BY MOUTH EVERY TWELVE HOURS NEEDED active Not Available Not Available No t Available neomycin 3.5 mg/g-polymyx in B 10,000 unit/g-dexam eth 0.1 % eye oint APPLY IN THE AFFECTED EYE(S) AT BEDTIME DIRECTED active Not Available Not Available No t Available escitalopram 10 mg tablet TAKE ONE TABLET BY MOUTH EVERY MORNING active Not Available Not Available No t Available escitalopram 20 mg tablet TAKE ONE TABLET EVERY MORNING active Not Available Not Available No t Available escitalopram 5 mg tablet TAKE ONE TABLET EVERY MORNING active Not Available Not Available No t Available vitamin B complex-foli c acid 0.4 mg tablet TAKE ONE TABLET EVERY MORNING active Not Available Not Available No t Available Xopenex HFA 45 mcg/actuatio n aerosol inhaler INHALE TWO PUFFS EVERY 6 HOURS NEEDED SHORTNESS OF BREATH OR FOR WHEEZING active Not Available Not Available No t Available cholecalcife rol (vitamin D3) 25 mcg (1,000 unit) tablet TAKE 1 TABLET BY MOUTH DAILY active Not Available Not Available Not Available Minerin Creme topical APPLY TO THE AFFECTED AREA(S) NEEDED DRY SKIN active Not Available Not Available No t Available Vitamin D3 50 mcg (2,000 unit) tablet TAKE ONE TABLET EVERY MORNING active Not Available Not Available No t Available Cerovite Senior 0.4 mg-300 mcg-250 mcg tablet TAKE ONE TABLET EVERY MORNING active Not Available Not Available No t Available Eliquis 2.5 mg tablet TAKE ONE TABLET TWICE DAILY IN THE MORNING AND AT BEDTIME active Not Available Not Available N ot Available Stimulant Laxative Plus 8.6 mg-50 mg tablet TAKE 2 TABLETS BY MOUTH DAILY AT BEDTIME FOR 14 DAYS NEEDED FOR CONSTIPATIO N active Not Available Not Available No t Available Entresto 24 mg-26 mg tablet TAKE ONE TABLET TWICE DAILY IN THE MORNING AND AT BEDTIME active Not Available Not Available N ot Available Xiidra 5 % eye drops in a dropperette PLACE ONE DROP IN EACH EYE TWICE DAILY active Not Available Not Available Not Available Trelegy Ellipta 100 mcg-62.5 mcg-25 mcg powder for inhalation INHALE 1 PUFF ONCE DAILY active Not Available Not Available No t Available Breztri Aerosphere 160 mcg-9mcg-4.8 mcg/actuatio n HFA aerosol inhaler INHALE TWO PUFFS BY MOUTH TWICE DAILY active Not Available Not Available No t Available Vitals Date Recorded Body height Body mass index (BMI) Body weight Provider Name and Address Organization Details Last Updated DateTime 07/14/2023 173.99 cm 30 kg/m2 46513.[address] [place] [facility] 07/14/2023 10:08:08 Social History Question Answer Notes LastModified by Organizat ion Details LastModified Time Tobacco Smoking Status Never Smoker [place] [facility], 07/14/2023 10:08:19 What Is Your Level Of Alcohol Consumption? None [email or web address] Information not available 07/14/2023 Do You Use Any Illicit Or Recreational Drugs? No Information not available 07/14/2023 Do You Or Have You Ever Used Any Other Forms Of Tobacco Or Nicotine? No Information not available 07/14/2023 Sex: Unknown Functional Status None recorded. Mental Status None recorded. Family History Relationship Description Onset Age of this Age Resolved Age Notes LastModified by Organization Details LastModified Time Mother Heart disease [email or web address] Not available 2022 10:09:22 Mother Hypercholest erolemia [email or web address] Not available 2022 10:09:34 Father Heart disease [email or web address] Not available 2022 10:09:22 Father Hypercholest erolemia [email or web address] Not available 2022 10:09:34 Sister Heart disease [email or web address] Not available 2022 10:09:22 Sister Hypercholest erolemia [email or web address] Not available 2022 10:09:34 Brother Heart disease [email or web address] Not available 2022 10:09:22 Brother Hypercholest erolemia [email or web address] Not available 2022 10:09:34 Medical History Condition Response Heart Disease Y Osteopenia Y Hypertension Y COPD Y Asthma Y Blood Transfusion Y Gynecological HistoryNo gynecological history recorded. Obstetrics History GPAL:G 0 P 0 0 0 0 Past Encounters Encounter ID Performer Location Encounter Start Date Encounter Closed Date Diagnosis/Indication Diagnosis SNOMED-CT Code Diagnosis ICD10 Code Diagnosis Note [id number] MD LOUIS Munoz [facility] [address] [address] 07/14/2023 09:00:39 07/14/2023 10:25:25 History of left total knee replacement 1375426840 495852 Z96.652 Cellulitis of left lower limb 4001514677 2272935 L03.116 [id number] MD LOUIS Munoz [facility] [address] [facility] [address] 07/23/2023 08:59:03 07/23/2023 09:27:36 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 07/14/2023 1 [place] [facility] [id number] [facility] 07/23/2023 2 [place] [id number] [facility] [id number] [facility] 07/23/2023 1 [place] [employer] [facility] [id number] [facility] Notes Date Note Type Note Provider Name and Address Organization Details Recorded Time 07/14/2023 text/html Patient is a 73-year-old female who presents with left knee pain and redness. Patient has a complex history regarding her left knee. 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 This was complicated by infection. She underwent revision total knee replacement with distal femur replacement [place] [address] Scooter Ramirez. She has been on suppressive antibiotic therapy with Keflex 500 mg BID. She denies fever or chills. KINSEY HAYES PA-C [address], [place], [address], [place] [facility] 07/24/2023 09:29:23 OBGyn Episode No OBEpisode recorded.
--- OUTSIDE RECORDS SUMMARY | 2024-07-26 11:33 | XMS_ITS ---
Author Name [facility] Organization Unknown Results Test Name/Text Value Interpretation Date Range Source RBC NO. BLD AUTO 3.43M/uL Below low normal [id number] 4.2 - 5.4 [facility] RBC QN AUTO 33pg Normal [id number] 25 - 33 [facility] RBC AUTO MCNC 35g/dL Normal 32 - 36 [facility] HGB BLD [facility] 11.3g/dL Below low normal 12.5 - 16 [facility] WBC NO. BLD AUTO 7.6K/uL Normal [id number] 4 - 10.5 [facility] HCT VFR BLD AUTO 32.3% Below low normal 37 - 47 [facility] MCV RBC AUTO 94.2fL Normal [id number] 78 - 100 [facility] RDW RBC AUTO RTO 15.4% Normal 12.1 - 16. 2 [facility] PLATELET NO. BLD AUTO 153K/uL Normal [id number] 150 - 450 [facility] PMV BLD AUTO 9.5fL Normal [id number] 7.4 - 11.4 [facility] CREAT SERPL [facility]NC 1mg/dL Normal 0.5 - 1 [facility] SODIUM SERPL SCNC 137mmol/L Normal [id number] 135 - 145 [facility] GLUCOSE SERPL [facility] 82mg/dL Normal [id number] 70 - 199 [facility] Glomerular filtration rate/1.73 sq M. predicted 59 Below low normal [id number] 60 - [facility] CHLORIDE SERPL SCNC 104mmol/L Normal 98 - 10 7 [facility] HCO3 SER SCNC 23mmol/L Below low normal [id number] 24 - 3 2 [facility] POTASSIUM SERPL SCNC 3.9mmol/L Normal 3.5 - 5.1 [facility] ANION GAP SERPL SCNC 10mmol/L Normal 5 - 14 [facility] BUN SERPL [facility] 18mg/dL Above high normal 7 - 17 [facility] CALCIUM SERPL [facility]NC 9.1mg/dL Normal 8.4 - 10 .2 [facility] CREAT SERPL [facility] 1.3mg/dL Above high normal 0. 5 - 1 [facility] SODIUM SERPL SCNC 137mmol/L Normal [id number] 135 - 145 [facility] GLUCOSE SERPL MCNC 95mg/dL Normal [id number] 70 - 199 [facility] Glomerular filtration rate/1.73 sq M. predicted 43 Below low normal 60 - [facility] CHLORIDE SERPL SCNC 105mmol/L Normal 98 - 10 7 [facility] HCO3 SER SCNC 24mmol/L Normal 24 - 32 [facility] POTASSIUM SERPL SCNC 4.1mmol/L Normal 3.5 - 5.1 [facility] ANION GAP SERPL SCNC 8mmol/L Normal 5 - 14 [facility] BUN SERPL MCNC 28mg/dL Above high normal 7 - 17 [facility] CALCIUM SERPL [facility] 8.4mg/dL Normal 8.4 - 10 .2 [facility] RBC NO. BLD AUTO 3.33M/uL Below low normal 4.2 - 5.4 [facility] RBC QN AUTO 31.7pg Normal [id number] 25 - 33 [facility] RBC AUTO MCNC 33.9g/dL Normal [id number] 32 - 36 [facility] HGB BLD [facility] 10.6g/dL Below low normal 12.5 - 16 [facility] WBC NO. BLD AUTO 7.3K/uL Normal 4 - 10.5 [facility] HCT VFR BLD AUTO 31.2% Below low normal 37 - 47 [facility]CV RBC AUTO 93.7fL Normal [id number] 78 - 100 [facility] RDW RBC AUTO RTO 15.4% Normal [id number] 12.1 - 16. 2 [facility] PLATELET NO. BLD AUTO 115K/uL Below low normal [id number] 6 150 - 450 [facility] PMV BLD AUTO 8.8fL Normal [id number] 7.4 - 11.4 [facility] CREAT SERPL MCNC 1.1mg/dL Above high normal [id number] 0. 5 - 1 [facility] SODIUM SERPL SCNC 138mmol/L Normal [id number] 135 - 145 [facility] GLUCOSE SERPL [facility]NC 124mg/dL Normal [id number] 70 - 199 [facility] Glomerular filtration rate/1.73 sq M. predicted 53 Below low normal [id number] 60 - [facility] CHLORIDE SERPL SCNC 107mmol/L Normal [id number] 98 - 10 7 [facility] HCO3 SER SCNC 25mmol/L Normal [id number] 24 - 32 [facility] POTASSIUM SERPL SCNC 4.4mmol/L Normal [id number] 3.5 - 5.1 [facility] ANION GAP SERPL SCNC 6mmol/L Normal [id number] 5 - 14 [facility] BUN SERPL MCNC 25mg/dL Above high normal [id number] 7 - 17 [facility] CALCIUM SERPL [facility]NC 8.7mg/dL Normal [id number] 8.4 - 10 .2 [facility] RBC NO. BLD AUTO 3.45M/uL Below low normal [id number] 4.2 - 5.4 [facility] RBC QN AUTO 31.8pg Normal [id number] 25 - 33 [facility] RBC AUTO MCNC 34g/dL Normal [id number] 32 - 36 [facility] HGB BLD MCNC 11g/dL Below low normal [id number] 12.5 - 16 [facility] WBC NO. BLD AUTO 9.8K/uL Normal [id number] 4 - 10.5 [facility] HCT VFR BLD AUTO 32.3% Below low normal [id number] 37 - 47 [facility] MCV RBC AUTO 93.5fL Normal [id number] 78 - 100 [facility] RDW RBC AUTO RTO 15.5% Normal [id number] 12.1 - 16. 2 [facility] PLATELET NO. BLD AUTO 118K/uL Below low normal [id number] 150 - 450 [facility] PMV BLD AUTO 8.9fL Normal [id number] 7.4 - 11.4 [facility] BLOOD GAS SITE Capillary Normal [id number] [facility] Service Cmmt XXX-Imp ISTAT Normal [id number] [facility] pCO2 temp adj Bld 30.8mmHg Below low normal [id number] 35 - 45 [facility] O2/INSPIRED GAS SETTING VFR VENT 60% Normal [id number] [facility] SODIUM BLDC SCNC 138mmol/L Normal [id number] 135 - 145 [facility] BASE DEFICIT BLDA SCNC 2mmol/L Normal [id number] 0 - 2 [facility] PH TEMP ADJ BLDA 7.463 Above high normal [id number] 7. 35 - 7.45 [facility] SAO2% BLDA 100% Above high normal [id number] 95 - 98 [facility] POTASSIUM BLDC SCNC 3.6mmol/L Normal [id number] 3.5 - 5 .1 [facility] HGB BLDC MCNC 8.2g/dL Below low normal [id number] 12.5 - 16 [facility] HCO3 BLDA SCNC 22.3mmol/L Normal [id number] 22 - 26 [facility] CORRECTED TEMP 96.8F [id number] [facility] GLUCOSE BLDC GLUCOMTR MCNC 100mg/dL Normal [id number] 70 - 199 [facility] HCT VFR BLDC 24% Below low normal [id number] 37 - 47 [facility] CA I BLDC SCNC 1.21mmol/L Normal [id number] 1.19 - 1.35 [facility] pO2 temp adj Bld 274mmHg Above high normal [id number] 80 - 105 [facility] PHOSPHATE SERPL [facility]NC 3.1mg/dL Normal [id number] 2.5 - 4.5 [facility] CREAT SERPL [facility]NC 1.3mg/dL Above high normal [id number] 0. 5 - 1 [facility] SODIUM SERPL SCNC 138mmol/L Normal [id number] 135 - 145 [facility] GLUCOSE SERPL MCNC 97mg/dL Normal [id number] 70 - 199 [facility] Glomerular filtration rate/1.73 sq M. predicted 43 Below low normal [id number] 60 - [facility] CHLORIDE SERPL SCNC 106mmol/L Normal [id number] 98 - 10 7 [facility] HCO3 SER SCNC 25mmol/L Normal [id number] 24 - 32 [facility] POTASSIUM SERPL SCNC 4mmol/L Normal [id number] 3.5 - 5.1 [facility] ANION GAP SERPL SCNC 7mmol/L Normal [id number] 5 - 14 [facility] BUN SERPL MCNC 25mg/dL Above high normal [id number] 7 - 17 [facility] CALCIUM SERPL MCNC 9.1mg/dL Normal [id number] 8.4 - 10 .2 [facility] MAGNESIUM SERPL [facility]NC 2.1mg/dL Normal [id number] 1.7 - 2.8 [facility] RBC NO. BLD AUTO 3.17M/uL Below low normal [id number] 4.2 - 5.4 [facility] RBC QN AUTO 32.6pg Normal [id number] 25 - 33 [facility] RBC AUTO MCNC 34.3g/dL Normal [id number] 32 - 36 [facility] HGB BLD [facility] 10.3g/dL Below low normal [id number] 12.5 - 16 [facility] WBC NO. BLD AUTO 5.2K/uL Normal [id number] 4 - 10.5 [facility] HCT VFR BLD AUTO 30.1% Below low normal [id number] 37 - 47 [facility] RBC AUTO 95.1fL Normal [id number] 78 - 100 [facility] RDW RBC AUTO RTO 14.9% Normal [id number] 12.1 - 16. 2 [facility] PLATELET NO. BLD AUTO 119K/uL Below low normal [id number] 4 150 - 450 [facility] PMV BLD AUTO 8.8fL Normal [id number] 7.4 - 11.4 [facility] TRANS NUM UNITS PACKED RBC Normal [id number] [facility]IMP Normal [id number] [facility] ABO+RH GP BLD Normal [id number] [facility] BLD GP AB SCN SERPL QL Normal [id number] [facility] RBC NO. BLD AUTO 3.27M/uL Below low normal [id number] 4.2 - 5.4 [facility] RBC QN AUTO 32.3pg Normal [id number] 25 - 33 [facility] RBC AUTO MCNC 33.3g/dL Normal [id number] 32 - 36 [facility] HGB BLD [facility]NC 10.6g/dL Below low normal [id number] 12.5 - 16 [facility] WBC NO. BLD AUTO 5.5K/uL Normal [id number] 4 - 10.5 [facility] HCT VFR BLD AUTO 31.7% Below low normal [id number] 37 - 47 [facility]CV RBC AUTO 97fL Normal [id number] 78 - 100 [facility] RDW RBC AUTO RTO 14.8% Normal [id number] 12.1 - 16. 2 [facility] PLATELET NO. BLD AUTO 125K/uL Below low normal [id number] 6 150 - 450 [facility] PMV BLD AUTO 9.3fL Normal [id number] 7.4 - 11.4 [facility] CREAT SERPL MCNC 1.2mg/dL Above high normal [id number] 0. 5 - 1 [facility] SODIUM SERPL SCNC 139mmol/L Normal [id number] 135 - 145 [facility] GLUCOSE SERPL MCNC 102mg/dL Normal [id number] 70 - 199 [facility] Glomerular filtration rate/1.73 sq M. predicted 48 Below low normal [id number] 60 - [facility] CHLORIDE SERPL SCNC 106mmol/L Normal [id number] 98 - 10 7 [facility] HCO3 SER SCNC 25mmol/L Normal [id number] 24 - 32 [facility] POTASSIUM SERPL SCNC 3.6mmol/L Normal [id number] 3.5 - 5.1 [facility] ANION GAP SERPL SCNC 8mmol/L Normal [id number] 5 - 14 [facility] BUN SERPL MCNC 20mg/dL Above high normal [id number] 7 - 17 [facility] CALCIUM SERPL MCNC 9.5mg/dL Normal [id number] 8.4 - 10 .2 [facility] PT TIME PPP 14.2sec Above high normal [id number] 10.5 - 13.3 [facility] INR PPP 1.2 Above high normal [id number] 0.8 - 1.1 [facility] RBC NO. BLD AUTO 3M/uL Below low normal [id number] 4.2 - 5.4 [facility] RBC QN AUTO 32.5pg Normal [id number] 25 - 33 [facility] RBC AUTO MCNC 34.1g/dL Normal [id number] 32 - 36 [facility] HGB BLD MCNC 9.8g/dL Below low normal [id number] 12.5 - 16 [facility] WBC NO. BLD AUTO 7.4K/uL Normal [id number] 4 - 10.5 [facility] HCT VFR BLD AUTO 28.7% Below low normal [id number] 37 - 47 [facility] RBC AUTO 95.5fL Normal [id number] 78 - 100 [facility] RDW RBC AUTO RTO 14.7% Normal [id number] 12.1 - 16. 2 [facility] PLATELET NO. BLD AUTO 114K/uL Below low normal [id number] 5 150 - 450 [facility] PMV BLD AUTO 9.1fL Normal [id number] 7.4 - 11.4 [facility] PHOSPHATE SERPL MCNC 2.9mg/dL Normal [id number] 2.5 - 4.5 [facility] CREAT SERPL MCNC 1mg/dL Normal [id number] 0.5 - 1 [facility] SODIUM SERPL SCNC 139mmol/L Normal [id number] 135 - 145 [facility] GLUCOSE SERPL MCNC 112mg/dL Normal [id number] 70 - 199 [facility] Glomerular filtration rate/1.73 sq M. predicted 59 Below low normal [id number] 60 - [facility] CHLORIDE SERPL SCNC 107mmol/L Normal [id number] 98 - 10 7 [facility] HCO3 SER SCNC 24mmol/L Normal [id number] 24 - 32 [facility] POTASSIUM SERPL SCNC 3.9mmol/L Normal [id number] 3.5 - 5.1 [facility] ANION GAP SERPL SCNC 8mmol/L Normal [id number] 5 - 14 [facility] BUN SERPL MCNC 15mg/dL Normal [id number] 7 - 17 [facility] CALCIUM SERPL MCNC 9.3mg/dL Normal [id number] 8.4 - 10 .2 [facility] MAGNESIUM SERPL MCNC 1.8mg/dL Normal [id number] 1.7 - 2.8 [facility] DIFFERENTIAL TYPE AUTOMATED Normal [id number] [facility] NEUTROPHILS NFR BLD AUTO 71.5% Normal [id number] 44 - 74 [facility] BASOPHILS NFR BLD AUTO 0.5% Normal [id number] 0 - 2 [facility] MONOCYTES NFR BLD AUTO 16.9% Above high normal [id number] 2 - 12 [facility] HCT VFR BLD AUTO 29.2% Below low normal [id number] 37 - 47 [facility] MONOCYTES NO. BLD AUTO 0.9K/uL Above high normal [id number] 0 - 0.8 [facility] RDW RBC AUTO RTO 14.5% Normal [id number] 12.1 - 16. 2 [facility] PLATELET NO. BLD AUTO 107K/uL Below low normal [id number] 6 150 - 450 [facility] EOSINOPHIL NO. BLD AUTO 0K/uL Normal [id number] 0 - 0.5 [facility] RBC NO. BLD AUTO 3.05M/uL Below low normal [id number] 4.2 - 5.4 [facility] RBC QN AUTO 32.6pg Normal [id number] 25 - 33 [facility]C RBC AUTO MCNC 34.1g/dL Normal [id number] 32 - 36 [facility] HGB BLD [facility]NC 10g/dL Below low normal [id number] 12.5 - 16 [facility] BASOPHILS IN BLOOD BY AUTOMATED COUNT 0K/uL Normal [id number] 0 - 0.2 [facility] WBC NO. BLD AUTO 5.5K/uL Normal [id number] 4 - 10.5 [facility] EOSINOPHIL NFR BLD AUTO 0.5% Normal [id number] 0 - 6 [facility] LYMPHOCYTES NFR BLD AUTO 10.6% Below low normal [id number] 20 - 48 [facility] MCV RBC AUTO 95.6fL Normal [id number] 78 - 100 [facility] NEUTROPHILS NO. BLD AUTO 3.9K/uL Normal [id number] 1.8 - 7.8 [facility] LYMPHOCYTES NO. BLD AUTO 0.6K/uL Below low normal [id number] 1 - 3.2 [facility] PMV BLD AUTO 8.8fL Normal [id number] 7.4 - 11.4 [facility] Troponin I SerPl HS-mCnc 8ng/L Normal [id number] 0 - 14 [facility] BLOOD BANK CMNT PATIENT-IMP Normal [id number] [facility] ABO+RH GP BLD Normal [id number] [facility] BLD GP AB SCN SERPL QL Normal [id number] [facility] CREAT SERPL MCNC 1mg/dL Normal [id number] 0.5 - 1 [facility] SODIUM SERPL SCNC 141mmol/L Normal [id number] 135 - 145 [facility] GLUCOSE SERPL MCNC 95mg/dL Normal [id number] 70 - 199 [facility] Glomerular filtration rate/1.73 sq M. predicted 59 Below low normal [id number] 60 - [facility] CHLORIDE SERPL SCNC 107mmol/L Normal [id number] 98 - 10 7 [facility] HCO3 SER SCNC 27mmol/L Normal [id number] 24 - 32 [facility] POTASSIUM SERPL SCNC 4.2mmol/L Normal [id number] 3.5 - 5.1 [facility] ANION GAP SERPL SCNC 7mmol/L Normal [id number] 5 - 14 [facility] BUN SERPL MCNC 20mg/dL Above high normal [id number] 7 - 17 [facility] CALCIUM SERPL MCNC 9.6mg/dL Normal [id number] 8.4 - 10 .2 [facility] APTT TIME PPP 33sec Normal [id number] 25 - 37 [facility] PT TIME PPP 13.2sec Normal [id number] 10.5 - 13.3 [facility] INR PPP 1.1 Normal [id number] 0.8 - 1.1 [facility] RBC NO. BLD AUTO 3.38M/uL Below low normal [id number] 4.2 - 5.4 [facility] RBC QN AUTO 32.7pg Normal [id number] 25 - 33 [facility]C RBC AUTO MCNC 33.6g/dL Normal [id number] 32 - 36 [facility] HGB BLD MCNC 11.1g/dL Below low normal [id number] 12.5 - 16 [facility] WBC NO. BLD AUTO 4.3K/uL Normal [id number] 4 - 10.5 [facility] HCT VFR BLD AUTO 33% Below low normal [id number] 37 - 47 [facility] MCV RBC AUTO 97.4fL Normal [id number] 78 - 100 [facility] RDW RBC AUTO RTO 14.5% Normal [id number] 12.1 - 16. 2 [facility] PLATELET NO. BLD AUTO 126K/uL Below low normal [id number] 4 150 - 450 [facility] PMV BLD AUTO 9.3fL Normal [id number] 7.4 - 11.4 [facility] BLOOD GAS SITE VENOUS Normal [id number] [facility] HCO3 BLDA SCNC 26.8mmol/L Above high normal [id number] 22 - 26 [facility] PO2 BLDA 20mmHg Below low normal [id number] 80 - 105 [facility] BASE EXCESS BLDA SCNC 2mmol/L Normal [id number] 0 - 2 [facility] PCO2 BLDA 42.5mmHg Normal [id number] 35 - 45 [facility] PH BLDA 7.407 Normal [id number] 7.35 - 7.45 [facility]MIN SAO2% BLDA 31% Below low normal [id number] 95 - 98 [facility] GLUCOSE BLDC GLUCOMTR MCNC 95mg/dL Normal [id number] 70 - 199 [facility] BLOOD BANK CMNT PATIENT-IMP Normal [id number] [facility] ABO+RH GP BLD Normal [id number] [facility] BLD GP AB SCN SERPL QL Normal [id number] [facility] PT TIME PPP 13.7sec Above high normal [id number] 10.5 - 13.3 [facility] INR PPP 1.1 Normal [id number] 0.8 - 1.1 [facility] G APTT TIME PPP 41sec Above high normal [id number] 25 - 37 [facility] CREAT SERPL MCNC 1.2mg/dL Above high normal [id number] 0. 5 - 1 [facility] BILIRUB SERPL MCNC 0.5mg/dL Normal [id number] 0.3 - 1 [facility] AST SERPL CCNC 29U/L Normal [id number] 5 - 40 [facility] Glomerular filtration rate/1.73 sq M. predicted 48 Below low normal [id number] 60 - [facility] HCO3 SER SCNC 28mmol/L Normal [id number] 24 - 32 [facility] POTASSIUM SERPL SCNC 4.2mmol/L Normal [id number] 3.5 - 5.1 [facility] ANION GAP SERPL SCNC 7mmol/L Normal [id number] 5 - 14 [facility] PROT SERPL MCNC 7.2g/dL Normal [id number] 6.4 - 8.5 [facility] CALCIUM SERPL MCNC 9.8mg/dL Normal [id number] 8.4 - 10 .2 [facility] ALP SERPL-CCNC 76U/L Normal [id number] 34 - 104 [facility] SODIUM SERPL SCNC 141mmol/L Normal [id number] 135 - 145 [facility] GLUCOSE P FAST SERPL MCNC 78mg/dL Normal [id number] 70 - 99 [facility] ALBUMIN SERPL BCG MCNC 4.1g/dL Normal [id number] 3.5 - 5 [facility] CHLORIDE SERPL SCNC 106mmol/L Normal [id number] 98 - 10 7 [facility] ALT SERPL CCNC 20U/L Normal [id number] 7 - 52 [facility] BUN SERPL MCNC 22mg/dL Above high normal [id number] 7 - 17 [facility] PREALB SERPL NEPH MCNC 26.4mg/dL Normal [id number] 17 - 34 [facility] DIFFERENTIAL TYPE AUTOMATED Normal [id number] [facility] NEUTROPHILS NFR BLD AUTO 44.6% Normal [id number] 44 - 74 [facility] BASOPHILS NFR BLD AUTO 0.8% Normal [id number] 0 - 2 [facility] MONOCYTES NFR BLD AUTO 17.8% Above high normal [id number] 2 - 12 [facility] HCT VFR BLD AUTO 32.5% Below low normal [id number] 37 - 47 [facility] MONOCYTES NO. BLD AUTO 0.4K/uL Normal [id number] 0 - 0.8 [facility] RDW RBC AUTO RTO 14.8% Normal [id number] 12.1 - 16. 2 [facility] PLATELET NO. BLD AUTO 114K/uL Below low normal [id number] 9 150 - 450 [facility] EOSINOPHIL NO. BLD AUTO 0K/uL Normal [id number] 0 - 0.5 [facility] RBC NO. BLD AUTO 3.35M/uL Below low normal [id number] 4.2 - 5.4 [facility] MCH RBC QN AUTO 32.4pg Normal [id number] 25 - 33 [facility] MCHC RBC AUTO MCNC 33.4g/dL Normal [id number] 32 - 36 [facility] HGB BLD MCNC 10.9g/dL Below low normal [id number] 12.5 - 16 [facility] BASOPHILS IN BLOOD BY AUTOMATED COUNT 0K/uL Normal [id number] 0 - 0.2 [facility] WBC NO. BLD AUTO 2.5K/uL Below low normal [id number] 4 - 10.5 [facility] EOSINOPHIL NFR BLD AUTO 2% Normal [id number] 0 - 6 [facility] LYMPHOCYTES NFR BLD AUTO 34.8% Normal [id number] 20 - 48 [facility] MCV RBC AUTO 96.8fL Normal [id number] 78 - 100 [facility] NEUTROPHILS NO. BLD AUTO 1.1K/uL Below low normal [id number] 1.8 - 7.8 [facility] LYMPHOCYTES NO. BLD AUTO 0.9K/uL Below low normal [id number] 1 - 3.2 [facility] PMV BLD AUTO 8.9fL Normal [id number] 7.4 - 11.4 [facility] History of Medication Use Medication Directions Dispensed Refills Start Date End Date Status cephalexin (KEFLEX) 500 MG capsule Take 1 capsule (500 mg total) by mouth 2 (two) times a day. 4 active gabapentin (NEURONTIN) 400 MG capsule Take 2 capsules (800 mg total) by mouth daily. Take with 100mg for a total of 900mg daily 4 active apixaban (Eliquis) 2.5 MG TABS tablet Take 2 tablets (5 mg total) by mouth every 12 (twelve) hours. 4 active traZODone (DESYREL) 50 MG tablet Take 1-2 tablets (50-100 mg total) by mouth every night at bedtime as needed. 4 active Fluticasone-Umeclidi n-Vilant (Trelegy Ellipta) 100-62.5-25 MCG/ACT AEPB Inhale 1 puff into the lungs daily. 4 active spironolactone (ALDACTONE) tablet 25 mg Take 0.5 tablets (12.5 mg total) by mouth daily. 4 active furosemide (LASIX) injection 20 mg 20 mg, Intravenous, Once, On 10/03/23 at 0000, For 1 dose 4 completed enoxaparin (LOVENOX) syringe 30 mg 30 mg, Subcutaneous, Every 12 hours scheduled (2 times per day), First dose on 10/02/23 at 2100, For 3 dosesAdminister in abdomen (at least 2 inches from navel) 4 completed cefTRIAXone (ROCEPHIN) injection 2,000 mg 2,000 mg, Intravenous, Every 24 hours, First dose on 10/04/23 at 1900If ordered IV then reconstitute with 20 mL sterile water or normal saline and administer IV push over 3 to 5 minutes. 4 active magnesium sulfate 2 g/50ml IVPB Premix 2 g, Intravenous, at 50 mL/hr, Once, On 10/02/23 at 0845, For 1 dose 4 completed apixaban (ELIQUIS) tablet 5 mg 5 mg, Oral, Every 12 hours scheduled (2 times per day), First dose (after last modification) on Wed10/06/23 at 2100 4 active metoprolol tartrate (LOPRESSOR) injection 2.5 mg 2.5 mg, Intravenous, Every 6 hours scheduled (4 times per day), First dose on Wed10/01/23 at 1800 4 aborted sacubitril-valsartan (ENTRESTO) 24-26 MG per tablet 1 tablet 1 tablet, Oral, Every 12 hours scheduled (2 times per day), First dose on Wed10/01/23 at 2100 4 active vancomycin (VANCOCIN) 1,250 mg in sodium chloride (NS) 0.9 % 250 mL IVPB 1,250 mg, Intravenous, at 166.7 mL/hr, Every 24 hours, First dose on Wed10/04/23 at 1900 4 active famotidine (PEPCID) tablet 20 mg 20 mg, Oral, Daily, First dose on Wed10/02/23 at 0900Please select an indication: GERDIs this a home medication or a new start? Home Medication 4 active iopamidol (ISOVUE-370) 76 % injection 85 mL 85 mL, Intravenous, IMG once as needed, contrast, Starting on Wed10/01/23 at 1346, For 1 dose, Radiology ContrastLot #: [id number] Date: 05/02/2026 4 completed apixaban (ELIQUIS) tablet 2.5 mg 2.5 mg, Oral, Every 12 hours scheduled (2 times per day), First dose on Wed10/06/23 at 0900 4 aborted iopamidol (ISOVUE-370) 76 % injection 95 mL 95 mL, Intravenous, IMG once as needed, contrast, Starting on Wed10/01/23 at 1747, For 1 dose, Radiology ContrastLot #: [id number] Date: 05/02/2026 4 completed ondansetron (ZOFRAN) injection 4 mg 4 mg, Intravenous, Every 6 hours PRN, nausea, vomiting, Starting on Wed10/01/23 at 1558IV push over 2 to 5 minutes. 4 active Fluticasone-Umeclidi n-Vilant (Trelegy Ellipta) 100-62.5-25 MCG/ACT AEPB Inhale 1 puff into the lungs daily. 4 active lactated ringers infusion 75 mL/hr, Intravenous, Continuous, Starting on Wed10/01/23 at 1330 4 aborted lactated ringers bolus 250 mL 250 mL, Intravenous, Administer over 1 Hours, Once, On Wed10/05/23 at 2345, For 1 dose 4 completed albuterol inhaler 2 puff 2 puff, Inhalation, Every 6 hours PRN, shortness of breath, Starting on Wed10/01/23 at 1603Is this patient positive for the Covid-19 virus or a Person Under Investigation (PUI)? Other (explain in comments) 4 active sodium chloride 0.9 % SOLN 250 mL with vancomycin 1 g SOLR 1,250 mg Inject 1,250 mg into the vein daily for 11 days. 4 active perflutren lipid microsphere (DEFINITY) IV contrast 0.5-10 mL, Intravenous, Once, On Wed10/02/23 at 1500, For 1 dose 4 completed simethicone (MYLICON) chewable tablet 80 mg 80 mg, Oral, Once, On Wed10/02/23 at 1200, For 1 dose 4 completed HYDROmorphone (DILAUDID) injection 0.5 mg 0.5 mg, Intravenous, Every 4 hours PRN, severe pain (7-10), Starting on Wed10/01/23 at 2009Administer IV push over 2-3 minutes. 4 aborted spironolactone (ALDACTONE) tablet 12.5 mg 12.5 mg, Oral, Daily, First dose (after last modification) on Wed10/02/23 at 0900Reproductive/Suzie ast Feeding Risk: Use appropriate precautions for handling and disposal. 4 active formoterol (PERFOROMIST) nebulizer solution 20 mcg 20 mcg, Nebulization, Every 12 hours scheduled (2 times per day), First dose on Wed10/01/23 at 2100 4 active cariprazine HCl (Vraylar) 1.5 MG capsule Take 1 capsule (1.5 mg total) by mouth daily. 4 active budesonide (PULMICORT) nebulizer solution 0.5 mg 0.5 mg, Nebulization, Every 12 hours scheduled (2 times per day), First dose on Wed10/01/23 at 2100 4 active tranexamic Acid 1,000 mg in sodium chloride 0.9% (NS) 100 mL IVPB-MBP 1,000 mg, Intravenous, Administer over 20 Minutes, Once, On Wed10/04/23 at 1615, For 1 dose, PACU/Phase 1Administer within 30 minutes arrival to PACU??for OR 4 completed ceFAZolin (ANCEF) injection 2,000 mg 2,000 mg, Intravenous, 30 min pre-op, Starting on Wed10/04/23 at 0726Do not administer on nursing floor or pre-op area.??Have ready for use in OR.??For Adults, if ordered IV then reconstitute each 1GM vial with 10mL sterile water or normal saline and administer IV Push over 3-5 minutes. 4 active traZODone (DESYREL) tablet 50 mg 50 mg, Oral, Every Night at Bedtime PRN, sleep, Starting on Wed10/01/23 at 1606 4 active revefenacin (YUPELRI) nebulization solution 175 mcg 175 mcg, Nebulization, Daily, First dose on Wed10/02/23 at 0900Administer via mebulizer. Do not mix with other medications in nebulizer. 4 active lactated ringers infusion 100 mL/hr, Intravenous, Continuous, Starting on Wed10/04/23 at 0000 4 aborted apixaban (Eliquis) 2.5 MG TABS tablet Take 2 tablets (5 mg total) by mouth every 12 (twelve) hours. 4 active metoprolol succinate ER 25 mg tablet,extended release 24 hr TAKE ONE TABLET EVERY MORNING 4 active Minerin Creme topical APPLY TO THE AFFECTED AREA(S) NEEDED DRY SKIN 4 active fluticasone propionate 50 mcg/actuation nasal spray,suspension USE TWO SPRAYS IN EACH NOSTRIL ONCE DAILY 4 active spironolactone 25 mg tablet TAKE ONE-HALF TABLET EVERY MORNING 4 active Xopenex HFA 45 mcg/actuation aerosol inhaler INHALE TWO PUFFS EVERY 6 HOURS NEEDED SHORTNESS OF BREATH OR FOR WHEEZING 4 active Eliquis 2.5 mg tablet TAKE ONE TABLET TWICE DAILY IN THE MORNING AND AT BEDTIME 4 active pantoprazole 40 mg tablet,delayed release TAKE ONE TABLET TWICE DAILY IN THE MORNING AND AT BEDTIME NEEDED 4 active aspirin 81 mg tablet,delayed release TAKE ONE TABLET EVERY MORNING 4 active sucralfate 1 gram tablet TAKE ONE TABLET EVERY NIGHT AT BEDTIME 4 active gabapentin 400 mg capsule TAKE TWO CAPSULES EVERY DAY AT BEDTIME 4 active Entresto 24 mg-26 mg tablet TAKE ONE TABLET TWICE DAILY IN THE MORNING AND AT BEDTIME 4 active gabapentin 100 mg capsule TAKE 1 TO 2 CAPSULES BY MOUTH AT BEDTIME 4 active escitalopram 20 mg tablet TAKE ONE TABLET EVERY MORNING 4 active Cholecalciferol 25 MCG (1000 UT) tablet Take 1 tablet (1,000 Units total) by mouth daily. 4 active meclizine (ANTIVERT) 12.5 MG tablet daily. 4 active escitalopram 10 mg tablet TAKE ONE TABLET BY MOUTH EVERY MORNING 4 active famotidine 20 mg tablet TAKE ONE TABLET IN THE MORNING AND EVENING NEEDED 4 active magnesium oxide 400 mg (241.3 mg magnesium) tablet TAKE TWO TABLETS TWICE DAILY IN THE MORNING AND AT BEDTIME 4 active folic acid (FOLVITE) tablet 1 mg Take 1 tablet (1,000 mcg total) by mouth every morning. 4 active cephalexin 500 mg capsule TAKE ONE CAPSULE TWICE DAILY IN THE MORNING AND AT BEDTIME 4 active medbox status USE DIRECTED 4 active loteprednol etabonate 0.5 % eye drops,suspension PLACE ONE DROP IN EACH EYE TWICE DAILY 4 active levalbuterol (Xopenex HFA) 45 MCG/ACT inhaler INHALE TWO PUFFS EVERY 6 HOURS NEEDED SHORTNESS OF BREATH OR FOR WHEEZING 4 active neomycin 3.5 mg/g-polymyxin B 10,000 unit/g-dexameth 0.1 % eye oint APPLY IN THE AFFECTED EYE(S) AT BEDTIME DIRECTED 4 active metoprolol succinate ER 25 mg tablet,extended release 24 hr TAKE ONE TABLET EVERY MORNING 4 active montelukast 10 mg tablet TAKE ONE TABLET EVERY NIGHT AT BEDTIME 4 active traZODone (DESYREL) 50 MG tablet every night at bedtime as needed. 4 active thiamine HCl (vitamin B1) 100 mg tablet TAKE ONE TABLET EVERY MORNING 4 active cephalexin 500 mg capsule TAKE ONE CAPSULE TWICE DAILY IN THE MORNING AND AT BEDTIME 4 active ferrous sulfate 325 mg (65 mg iron) tablet TAKE ONE TABLET TWICE DAILY IN THE MORNING AND AT BEDTIME 4 active oxycodone 5 mg tablet TAKE ONE TABLET BY MOUTH EVERY TWELVE HOURS NEEDED 4 active magnesium oxide 400 (241.3 Mg) MG TABS tablet Take 1 tablet (400 mg total) by mouth 3 (three) times a day. 4 active escitalopram 10 mg tablet TAKE ONE TABLET BY MOUTH EVERY MORNING 4 active ascorbic acid (VITAMIN C) 250 MG tablet Take 1 tablet (250 mg total) by mouth every morning. 4 active amiodarone 200 mg tablet TAKE ONE TABLET EVERY MORNING 4 active aspirin EC 81 MG tablet Take 1 tablet (81 mg total) by mouth every morning. 4 active Stimulant Laxative Plus 8.6 mg-50 mg tablet TAKE 2 TABLETS BY MOUTH DAILY AT BEDTIME FOR 14 DAYS NEEDED FOR CONSTIPATION 4 active thiamine HCl (vitamin B1) 100 mg tablet TAKE ONE TABLET EVERY MORNING 4 active montelukast 10 mg tablet TAKE ONE TABLET EVERY NIGHT AT BEDTIME 4 active Entresto 24 mg-26 mg tablet TAKE ONE TABLET TWICE DAILY IN THE MORNING AND AT BEDTIME 4 active pantoprazole (PROTONIX) 40 MG tablet Take 1 tablet (40 mg total) by mouth 2 (two) times a day. 4 active calcium carbonate 600 mg calcium (1,500 mg) tablet TAKE ONE TABLET EVERY MORNING 4 active oxycodone 5 mg tablet TAKE ONE TABLET BY MOUTH EVERY TWELVE HOURS NEEDED 4 active calcium carbonate 600 mg calcium (1,500 mg) tablet TAKE ONE TABLET EVERY MORNING 4 active cephalexin 500 mg capsule TAKE ONE CAPSULE TWICE DAILY IN THE MORNING AND AT BEDTIME 4 active medbox status USE DIRECTED 4 active loteprednol etabonate 0.5 % eye drops,suspension PLACE ONE DROP IN EACH EYE TWICE DAILY 4 active levalbuterol (Xopenex HFA) 45 MCG/ACT inhaler INHALE TWO PUFFS EVERY 6 HOURS NEEDED SHORTNESS OF BREATH OR FOR WHEEZING 4 active neomycin 3.5 mg/g-polymyxin B 10,000 unit/g-dexameth 0.1 % eye oint APPLY IN THE AFFECTED EYE(S) AT BEDTIME DIRECTED 4 active metoprolol succinate ER 25 mg tablet,extended release 24 hr TAKE ONE TABLET EVERY MORNING 4 active montelukast 10 mg tablet TAKE ONE TABLET EVERY NIGHT AT BEDTIME 4 active traZODone (DESYREL) 50 MG tablet every night at bedtime as needed. 4 active thiamine HCl (vitamin B1) 100 mg tablet TAKE ONE TABLET EVERY MORNING 4 active Trelegy Ellipta 100 mcg-62.5 mcg-25 mcg powder for inhalation INHALE 1 PUFF ONCE DAILY 4 active Trelegy Ellipta 100 mcg-62.5 mcg-25 mcg powder for inhalation INHALE 1 PUFF ONCE DAILY 4 active aspirin 81 mg tablet,delayed release TAKE ONE TABLET EVERY MORNING 4 active cephalexin (KEFLEX) 500 MG capsule TAKE ONE CAPSULE TWICE DAILY IN THE MORNING AND AT BEDTIME 4 active Stimulant Laxative Plus 8.6 mg-50 mg tablet TAKE 2 TABLETS BY MOUTH DAILY AT BEDTIME FOR 14 DAYS NEEDED FOR CONSTIPATION 4 active ferrous sulfate 325 mg (65 mg iron) tablet TAKE ONE TABLET TWICE DAILY IN THE MORNING AND AT BEDTIME 4 active pantoprazole 40 mg tablet,delayed release TAKE ONE TABLET TWICE DAILY IN THE MORNING AND AT BEDTIME NEEDED 4 active ascorbic acid (vitamin C) 250 mg tablet TAKE ONE TABLET EVERY MORNING 4 active cholecalciferol (vitamin D3) 25 mcg (1,000 unit) tablet TAKE 1 TABLET BY MOUTH DAILY 4 active gabapentin 100 mg capsule TAKE 1 TO 2 CAPSULES BY MOUTH AT BEDTIME 4 active escitalopram 5 mg tablet TAKE ONE TABLET EVERY MORNING 4 active cholecalciferol (vitamin D3) 25 mcg (1,000 unit) tablet TAKE 1 TABLET BY MOUTH DAILY 4 active alprazolam 0.25 mg tablet TAKE ONE TABLET THREE TIMES DAILY NEEDED 4 active neomycin 3.5 mg/g-polymyxin B 10,000 unit/g-dexameth 0.1 % eye oint APPLY IN THE AFFECTED EYE(S) AT BEDTIME DIRECTED 4 active escitalopram 5 mg tablet TAKE ONE TABLET EVERY MORNING 4 active amiodarone (PACERONE) 200 MG tablet Take 1 tablet (200 mg total) by mouth 2 (two) times a day with meals. 4 active gabapentin (NEURONTIN) 100 MG capsule Take 1 capsule (100 mg total) by mouth every night at bedtime. 900 mg total qhs 4 active Eliquis 2.5 mg tablet TAKE ONE TABLET TWICE DAILY IN THE MORNING AND AT BEDTIME 4 active fluticasone propionate 50 mcg/actuation nasal spray,suspension USE TWO SPRAYS IN EACH NOSTRIL ONCE DAILY 4 active gabapentin (NEURONTIN) 400 MG capsule 900 mg total q hs 4 active estradiol 0.01% (0.1 mg/gram) vaginal cream APPLY ONE GRAM VAGINALLY EVERY NIGHTLY FOR 2 WEEKS AND THEN USE 1-2 NIGHTS PER WEEK THEREAFTER 4 active trazodone 50 mg tablet TAKE TWO TABLETS EVERY DAY AT BEDTIME 4 active magnesium oxide 400 mg (241.3 mg magnesium) tablet TAKE TWO TABLETS TWICE DAILY IN THE MORNING AND AT BEDTIME 4 active cariprazine HCl (Vraylar) 1.5 MG capsule Take 1 capsule (1.5 mg total) by mouth daily. 4 active famotidine 20 mg tablet TAKE ONE TABLET IN THE MORNING AND EVENING NEEDED 4 active spironolactone (ALDACTONE) tablet 25 mg Take 1 tablet (25 mg total) by mouth daily. 4 active acetaminophen (TYLENOL EXTRA STRENGTH) 500 MG tablet Three Times A Day 4 active doxycycline hyclate 100 mg capsule TAKE ONE CAPSULE BY MOUTH TWICE DAILY UNTIL FINISHED 4 active atorvastatin (LIPITOR) tablet 40 mg Take 1 tablet (40 mg total) by mouth every night at bedtime. 4 active Vitamin D3 50 mcg (2,000 unit) tablet TAKE ONE TABLET EVERY MORNING 4 active metoprolol succinate (TOPROL-XL) 24 hr tablet 25 mg Take 1 tablet (25 mg total) by mouth every morning. 4 active folic acid 1 mg tablet TAKE ONE TABLET EVERY MORNING 4 active escitalopram 20 mg tablet TAKE ONE TABLET EVERY MORNING 4 active Multiple Vitamin (MULTI-VITAMIN DAILY PO) Take by mouth every morning. 4 active amiodarone 200 mg tablet TAKE ONE TABLET EVERY MORNING 4 active ascorbic acid (vitamin C) 250 mg tablet TAKE ONE TABLET EVERY MORNING 4 active iomjhtmm-ioursoyxn-b examethamethasone (POLYDEX) 3.5-85775-8.[address] into both eyes 2 (two) times a week on Wednesday and at 8PM. 4 aborted Vitamin D3 50 mcg (2,000 unit) tablet TAKE ONE TABLET EVERY MORNING 4 active Cyanocobalamin (VITAMIN B 12 PO) Take 1 tablet by mouth daily. 4 active sucralfate 1 gram tablet TAKE ONE TABLET EVERY NIGHT AT BEDTIME 4 active Lifitegrast (Xiidra) 5 % SOLN PLACE ONE DROP IN EACH EYE TWICE DAILY 4 active Xopenex HFA 45 mcg/actuation aerosol inhaler INHALE TWO PUFFS EVERY 6 HOURS NEEDED SHORTNESS OF BREATH OR FOR WHEEZING 4 active montelukast (SINGULAIR) 10 MG tablet Take 1 tablet (10 mg total) by mouth every night at bedtime. 4 active Breztri Aerosphere 160 mcg-9mcg-4.8mcg/actu ation HFA aerosol inhaler INHALE TWO PUFFS BY MOUTH TWICE DAILY 4 active Xiidra 5 % eye drops in a dropperette PLACE ONE DROP IN EACH EYE TWICE DAILY 4 active gabapentin 400 mg capsule TAKE TWO CAPSULES EVERY DAY AT BEDTIME 4 active atorvastatin 40 mg tablet TAKE ONE TABLET BY MOUTH AT BEDTIME 4 active thiamine (VITAMIN B-1) 100 MG tablet Take 1 tablet (100 mg total) by mouth. 4 active trazodone 50 mg tablet TAKE TWO TABLETS EVERY DAY AT BEDTIME 4 active Eliquis 2.5 MG TABS tablet TAKE ONE TABLET TWICE DAILY IN THE MORNING AND AT BEDTIME 4 aborted montelukast (SINGULAIR) 10 MG tablet Take 10 mg by mouth every night at bedtime. 4 aborted escitalopram (LEXAPRO) 20 MG tablet Take 1 tablet (20 mg total) by mouth every morning. 4 aborted Docusate Sodium (DSS) 100 MG CAPS Take 1 capsule by mouth daily. 4 aborted ipratropium-albutero l (DUO-NEB) 0.5-2.5 mg/mL nebulizer Inhale 3 mL into the lungs every 6 (six) hours as needed. 4 aborted magnesium hydroxide (MILK OF MAGNESIA) 400 MG/5ML suspension Take 30 mL by mouth daily as needed for constipation. 4 aborted calcium carbonate (Calcium 600) 600 MG tablet Take 600 mg by mouth every morning after breakfast. 4 aborted zinc sulfate (ZINCATE) 220 (50 Zn) MG capsule Take 1 capsule (220 mg total) by mouth daily. 4 suspended Cholecalciferol (VITAMIN D) 25 MCG (1000 UT) TABS TAKE ONE TABLET BY MOUTH EVERY DAY 4 aborted ELIQUIS 5 MG TABS tablet TAKE ONE TABLET BY MOUTH TWICE DAILY 4 aborted traMADol (ULTRAM) 50 MG tablet Every 8 Hours as needed for Moderate Pain 4 aborted aspirin 81 MG tablet Take 81 mg by mouth every morning after breakfast. 4 aborted Lifitegrast (Xiidra) 5 % SOLN PLACE ONE DROP IN EACH EYE TWICE DAILY 4 suspended Cholecalciferol 50 MCG (2000 UT) TABS Take 1 tablet by mouth every morning. 4 aborted methocarbamol (ROBAXIN) 750 MG tablet Take 1 tablet (750 mg total) by mouth every 6 (six) hours as needed. 4 aborted Skin Protectants, Misc. (Minerin Creme) CREA APPLY TO THE AFFECTED AREA(S) NEEDED DRY SKIN 4 aborted melatonin 3 MG TABS tablet Take 1 tablet (3 mg total) by mouth. 4 aborted bisacodyl (DULCOLAX) [address] 1 suppository (10 mg total) rectally daily as needed. 4 aborted Cholecalciferol 50 MCG (2000 UT) CAPS 4 aborted NYSTATIN PO Take 5 mL by mouth 4 (four) times a day. 4 aborted spironolactone (ALDACTONE) tablet 25 mg Take 1 tablet (25 mg total) by mouth daily. 4 suspended escitalopram (LEXAPRO) tablet 10 mg Take 1 tablet (10 mg total) by mouth daily. 4 aborted celecoxib (CeleBREX) 200 MG capsule Daily 4 aborted Calcium Carb-Cholecalciferol (CALCIUM CARBONATE-VITAMIN D3 PO) Take 1 tablet by mouth every morning. 4 suspended fluticasone-vilanter ol (BREO ELLIPTA) 100-25 MCG/ACT inhaler Inhale into the lungs. 4 aborted Calcium Carb-Cholecalciferol 600-10 MG-MCG CAPS Twice A Day 4 aborted HYDROmorphone (DILAUDID) 2 MG tablet Every 4-6 Hours as needed for Severe Pain 4 aborted metoprolol succinate (TOPROL-XL) 24 hr tablet 25 mg Take 1 tablet (25 mg total) by mouth daily. 4 aborted Fluticasone-Umeclidi n-Vilant (TRELEGY ELLIPTA IN) Inhale into the lungs. 4 aborted doxycycline (VIBRAMYCIN) 100 MG capsule TAKE ONE CAPSULE BY MOUTH TWICE DAILY UNTIL FINISHED 4 aborted mirtazapine (REMERON) 7.5 MG tablet Take 7.5 mg by mouth. 4 aborted losartan (COZAAR) tablet 25 mg Take 25 mg by mouth daily. 4 aborted potassium chloride (KAYCIEL) 20 MEQ/15ML (10%) solution TAKE 23ML BY MOUTH WITH DINNER 4 aborted atorvastatin (LIPITOR) tablet 40 mg Take 40 mg by mouth every night at bedtime. 4 aborted PROAIR HFA 108 (90 BASE) MCG/ACT inhaler INL 2 PFS ITL Q 4 H PRF COUGH OR WHZ 4 aborted levoFLOXacin (LEVAQUIN) 500 MG tablet Daily 4 aborted sacubitril-valsartan (Entresto) 24-26 MG per tablet TAKE ONE TABLET TWICE DAILY IN THE MORNING AND AT BEDTIME 4 aborted furosemide (LASIX) 20 MG tablet Take 20 mg by mouth daily. 4 aborted potassium chloride ER (K-DUR,KLOR-CON) tablet 20 mEq Take 1 tablet by mouth daily. 4 aborted meclizine (ANTIVERT) 12.5 MG tablet daily. 4 suspended gabapentin (NEURONTIN) 100 MG capsule Take 1-2 capsules (100-200 mg total) by mouth every night at bedtime. 4 aborted docusate sodium 100 MG CAPS Take 100 mg by mouth 2 (two) times a day as needed for constipation. 4 aborted apixaban (Eliquis) 2.5 MG TABS tablet TAKE ONE TABLET TWICE DAILY IN THE MORNING AND AT BEDTIME 4 suspended aspirin EC 81 MG tablet Take 1 tablet (81 mg total) by mouth every morning. 4 suspended Melatonin 5 MG TABS Take 5 mg by mouth every night at bedtime as needed. 4 suspended oxyCODONE (ROXICODONE) 5 MG immediate release tablet Take 1 tablet (5 mg total) by mouth every 8 (eight) hours as needed for pain. 4 aborted ferrous sulfate 325 (65 FE) MG tablet Take 1 tablet (325 mg total) by mouth every morning with breakfast. 4 suspended fluticasone (FLONASE) 50 MCG/ACT nasal spray PLACE TWO SPRAYS IN EACH NOSTRIL AT BEDTIME. 4 aborted levalbuterol (Xopenex HFA) 45 MCG/ACT inhaler INHALE TWO PUFFS EVERY 6 HOURS NEEDED SHORTNESS OF BREATH OR FOR WHEEZING 4 suspended montelukast (SINGULAIR) 10 MG tablet Take 2 tablets (20 mg total) by mouth daily as needed. 4 aborted gabapentin (NEURONTIN) 400 MG capsule Take 2 capsules (800 mg total) by mouth daily. Take with 100mg for a total of 900mg daily 4 suspended fluconazole (DIFLUCAN) 200 MG tablet Take 1 tablet (200 mg total) by mouth daily. 4 aborted BREO ELLIPTA 100-25 MCG/INH inhaler USE ONE INHALATION EVERY DAY 4 aborted Riboflavin (Vitamin B-2) 100 MG TABS Twice A Day 4 aborted gabapentin (NEURONTIN) 300 MG capsule Bedtime 4 aborted gabapentin (NEURONTIN) 100 MG capsule Take 1 capsule (100 mg total) by mouth daily. Take with 800mg for a total of 900mg tablet daily 4 suspended thiamine (VITAMIN B-1) 100 MG tablet Take 1 tablet (100 mg total) by mouth. 4 suspended pantoprazole (PROTONIX) 40 MG tablet Take 1 tablet (40 mg total) by mouth 2 (two) times a day. 4 suspended ALPRAZolam (XANAX) 0.25 MG tablet Take 1 tablet (0.25 mg total) by mouth 3 (three) times a day as needed. 4 aborted Cholecalciferol 25 MCG (1000 UT) tablet Take 1 tablet (1,000 Units total) by mouth daily. 4 suspended POTASSIUM CHLORIDE PO Take 10 mEq by mouth. 4 aborted pravastatin (PRAVACHOL) tablet 80 mg Bedtime 4 aborted metoprolol tartrate (LOPRESSOR) 50 MG tablet Take 0.5 tablets (25 mg total) by mouth. 4 aborted Incruse Ellipta 62.5 MCG/INH AEPB INHALE ONE PUFF DAILY AT THE SAME TIME each DAY 4 aborted collagenase (Santyl) ointment 4 aborted Calcium Carbonate 1500 (600 Ca) MG TABS Take 1 tablet by mouth every morning. 4 aborted acetaminophen (TYLENOL) 325 MG tablet Take 650 mg by mouth every 6 (six) hours as needed for pain. 4 aborted senna-docusate (PERICOLACE) 8.6-50 MG Take 1 tablet by mouth 2 (two) times a day. 4 aborted Fluticasone-Umeclidi n-Vilant (Trelegy Ellipta) 100-62.5-25 MCG/INH AEPB 4 aborted budesonide-formotero l (SYMBICORT) 160-4.5 MCG/ACT inhaler Twice A Day 4 aborted fbecxgna-rxqqghmcl-q examethamethasone (POLYDEX) 3.5-54222-[address] into both eyes 2 (two) times a week on Wednesday and at 8PM. 4 aborted magnesium oxide 400 (241.3 Mg) MG TABS tablet Take 1 tablet (400 mg total) by mouth 3 (three) times a day. 4 suspended folic acid (FOLVITE) tablet 1 mg Take 1 tablet (1,000 mcg total) by mouth every morning. 4 suspended escitalopram (LEXAPRO) 5 MG tablet Take 1 tablet (5 mg total) by mouth every morning. 4 aborted aspirin 81 MG EC tablet Daily 4 aborted metoprolol succinate (TOPROL-XL) 24 hr tablet 50 mg Take 1 tablet (50 mg total) by mouth daily. 4 aborted alendronate (FOSAMAX) tablet 70 mg Every 7 Days 4 aborted famotidine (PEPCID) 20 MG tablet TAKE ONE TABLET IN THE MORNING AND EVENING NEEDED 4 suspended Entresto 49-51 MG per tablet Take 1 tablet by mouth 2 (two) times a day. Hold sbp<95 4 aborted traZODone (DESYREL) 50 MG tablet Take 1-2 tablets (50-100 mg total) by mouth every night at bedtime as needed. 4 suspended magnesium oxide (MAG-OX) 400 MG tablet TAKE ONE TABLET FOUR TIMES DAILY 4 aborted cephalexin (KEFLEX) 500 MG capsule TAKE ONE CAPSULE TWICE DAILY IN THE MORNING AND AT BEDTIME 4 suspended Amino Acids-Protein Hydrolys (Proteinex) LIQD Take 30 mL by mouth 3 (three) times a day. 4 aborted warfarin (COUMADIN) 1 MG tablet Daily 4 aborted senna (SENOKOT) 8.6 MG tablet Bedtime 4 aborted gabapentin (NEURONTIN) 400 MG capsule 900 mg total q hs 4 aborted sucralfate (CARAFATE) 1 g tablet Take 1 tablet (1 g total) by mouth every night at bedtime. 4 aborted amLODIPine (NORVASC) tablet 5 mg Take 5 mg by mouth. 4 aborted acetaminophen (TYLENOL EXTRA STRENGTH) 500 MG tablet Three Times A Day 4 suspended amiodarone (PACERONE) 200 MG tablet Take 1 tablet (200 mg total) by mouth every morning. 4 aborted polyethylene glycol (MIRALAX) 17 g packet Take 17 g by mouth daily as needed (constipation). 4 aborted Vraylar 1.5 MG capsule Take 1 capsule (1.5 mg total) by mouth daily. in the morning 4 aborted estradiol (ESTRACE) 0.1 MG/GM vaginal cream APPLY ONE GRAM VAGINALLY EVERY NIGHTLY FOR 2 WEEKS AND THEN USE 1-2 NIGHTS PER WEEK THEREAFTER 4 aborted doxycycline (ADOXA) 100 MG tablet Take 1 tablet (100 mg total) by mouth 2 (two) times a day. 4 aborted iron polysaccharides (NIFEREX) 150 MG capsule Take 1 capsule (150 mg total) by mouth. 4 aborted folic acid (FOLVITE) tablet 1 mg Take 1 mg by mouth. 4 aborted guaiFENesin (MUCINEX) 600 MG 12 hr tablet Take 600 mg by mouth 2 (two) times a day. 4 aborted clonazePAM (KlonoPIN) 0.5 MG tablet Take 0.5 mg by mouth 2 (two) times a day as needed for anxiety. 4 aborted ascorbic acid (VITAMIN C) 250 MG tablet Take 1 tablet (250 mg total) by mouth every morning. 4 suspended Entresto 24-26 MG per tablet TAKE ONE TABLET TWICE DAILY IN THE MORNING AND AT BEDTIME 4 active apixaban (Eliquis) 2.5 MG TABS tablet TAKE ONE TABLET TWICE DAILY IN THE MORNING AND AT BEDTIME 4 active ferrous sulfate 325 (65 FE) MG tablet Take 1 tablet (325 mg total) by mouth every morning with breakfast. 4 active zinc sulfate (ZINCATE) 220 (50 Zn) MG capsule Take 1 capsule (220 mg total) by mouth daily. 4 active escitalopram (LEXAPRO) 20 MG tablet Take 1 tablet (20 mg total) by mouth every morning after breakfast. 4 active famotidine (PEPCID) 20 MG tablet TAKE ONE TABLET IN THE MORNING AND EVENING NEEDED 4 active Melatonin 5 MG TABS Take 5 mg by mouth every night at bedtime as needed. 4 active alprazolam 0.25 mg tablet TAKE ONE TABLET THREE TIMES DAILY NEEDED 4 active folic acid 1 mg tablet TAKE ONE TABLET EVERY MORNING 4 active loteprednol etabonate 0.5 % eye drops,suspension PLACE ONE DROP IN EACH EYE TWICE DAILY 4 active estradiol 0.01% (0.1 mg/gram) vaginal cream APPLY ONE GRAM VAGINALLY EVERY NIGHTLY FOR 2 WEEKS AND THEN USE 1-2 NIGHTS PER WEEK THEREAFTER 4 active doxycycline hyclate 100 mg capsule TAKE ONE CAPSULE BY MOUTH TWICE DAILY UNTIL FINISHED 4 active spironolactone 25 mg tablet TAKE ONE-HALF TABLET EVERY MORNING 4 active Breztri Aerosphere 160 mcg-9mcg-4.8mcg/actu ation HFA aerosol inhaler INHALE TWO PUFFS BY MOUTH TWICE DAILY 4 active Xiidra 5 % eye drops in a dropperette PLACE ONE DROP IN EACH EYE TWICE DAILY 4 active atorvastatin 40 mg tablet TAKE ONE TABLET BY MOUTH AT BEDTIME 4 active Problems Problem Status Onset Date Problem Type Date of Resolution Source Fracture of patella, left, closed active EncounterDiagnosisAct [facility]THSF RAN Other mechanical complication of internal left hip prosthesis, initial encounter ([facility]) active EncounterDiagnosisAct CTT HSFRAN HFrEF (heart failure with reduced ejection fraction) ([facility]) active EncounterDiagnosisAct CTT HSFRAN Periprosthetic fracture of knee active EncounterDiagnosisAct CT THSFRAN Other mechanical complication of internal left knee prosthesis, initial encounter ([facility]) active EncounterDiagnosisAct CTT HSFRAN Closed fracture of left distal femur ([facility]) active EncounterDiagnosisAct [facility]THSF RAN 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 active 2023-07-23 ProblemAct E[facility]_AON[facility] Cellulitis of left lower limb active 2023-07-24 ProblemAct [facility] Paroxysmal A-fib active 2020-08-07 ProblemAct C [facility] Periprosthetic fracture around internal prosthetic left knee joint, initial encounter active 2023-10-01 ProblemAct [facility] Prosthetic joint infection, subsequent encounter active 2020-10-16 ProblemAct [facility] Non-ischemic cardiomyopathy active 2020-08-07 ProblemAct [facility] LBBB (left bundle branch block) active 2020-10-07 ProblemAct [facility] Anemia active 2021-02-07 ProblemAct [facility] Secondary hypercoagulable state active 2020-10-24 ProblemAct [facility] Asthma-COPD overlap syndrome active 2017-02-12 ProblemAct [facility] Obstructive sleep apnea syndrome active 2017-02-12 ProblemAct [facility] Primary osteoarthritis of right knee active 2018-04-19 ProblemAct [facility] Chronic pain of right knee active 2018-04-19 ProblemAct [facility] Acute adjustment disorder with mixed anxiety and depressed mood active 2018-11-23 ProblemAct [facility] Anemia due to stage 3 chronic kidney disease active 2021-03-20 ProblemAct [facility] Thrombocytopenia active 2021-02-07 ProblemAct C [facility] S/P joint replacement active 2020-12-01 ProblemAct [facility] Primary osteoarthritis of left knee active 2018-04-19 ProblemAct [facility] Morbid obesity with alveolar hypoventilation active 2020-10-24 ProblemAct [facility] Essential hypertension active 2016-02-25 ProblemAct [facility] Immunizations Vaccine Date Source Lot Number Status Tdap 10/01/2023 [facility] [id number] completed Covid-19 (Pfizer) Dilution Required 12/06/2020 [facility] [id number] completed Pneumococcal Polysaccharide PPSV23 01/08/2010 [facility] [id number] completed Covid-19 (Pfizer) Dilution Required 12/27/2020 [facility] [id number] completed
--- OUTSIDE RECORDS SUMMARY | 2024-07-26 11:33 | XMS_ITS | Continuity of Care Document ---
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 Challenged with proprioception /NMR activities. unable to complete AROM SLR or SAQ due to weakness preventing independent terminal ext P: Cont to progress strength and mobility per POC ademetrius Not available 04/26/2024 13:35:28 Plan of Treatment Reminders Order Date Submit Date Provider Last Modified By Organization Details Last Modified Time Details Appointments PT INITIAL EVAL 2024 03:00P M Elizabeth Lopez, PT Not available Not available Not available PT ANY 2024 12:30P M Elizabeth Lopez, PT Not available Not available Not available PT FOLLOW-U P 2024 11:00A M Mena Mir , FITTER WELDER Not available Not available Not available PT FOLLOW-U P 2024 10:00A M Mena Mir , FITTER WELDER Not available Not available Not available PT FOLLOW-U P 2024 10:30A M Mena Mir , FITTER WELDER Not available Not available Not available PT ANY 2024 10:00A M Elizabeth Polastry, PT Not available Not available Not available PT ANY 2024 11:00A M Elizabeth Lopez, PT Not available Not available Not available Lab None recorded . Referral None recorded . Procedures None recorded . Surgeries None recorded . Imaging None recorded . Medication Orders None recorded . Patient TargetsNo targets recorded. Patient InstructionsNo instructions recorded. Reason for Referral None Reported. Procedures Surgical History Date Name Laterality Status Provider Name and Address Organization Details Recorded Time 34692 Therapeutic Exercise (1:1) completed Mena Verasetrius, FITTER WELDER [address], [place], [address], [facility] 03/01/2024 14:31:11 4 66850 Therapeutic Exercise (1:1) completed Elizabeth Lopez, PT [address], [place], [address], [facility] 02/22/2024 11:29:29 4 52599 Therapeutic Exercise (1:1) completed Mena Castilloius, FITTER WELDER [address], [place], [address], [facility] 02/16/2024 14:29:14 4 22040 Therapeutic Exercise (1:1) completed Mena Castilloius, FITTER WELDER [address], [place], [address], [facility] 02/09/2024 14:41:13 4 62267 Therapeutic Exercise (1:1) completed Elizabeth Lopez, PT [address], [place], [address], [facility] 02/01/2024 11:01:38 4 49214 Therapeutic Exercise (1:1) completed Mena Castilloius, FITTER WELDER [address], [place], [address], [facility] 01/28/2024 13:29:28 4 15639 Therapeutic Exercise (1:1) completed Elizabeth Lopez, PT [address], [place], [address], [facility] 01/25/2024 10:26:35 4 43109 Therapeutic Exercise (1:1) completed Elizabeth Lopez, PT [address], [place], [address], [facility] 01/18/2024 11:56:37 4 50909 Therapeutic Exercise (1:1) completed Mena Castilloius, FITTER WELDER [address], [place], [address], [facility] 01/13/2024 12:21:42 4 70646 Therapeutic Exercise (1:1) completed Mena Hester, FITTER WELDER [address], [place], [address], [facility] 01/11/2024 13:04:49 4 65093 Therapeutic Exercise (1:1) completed Elizabeth Lopez, PT [address], [place], [address], [facility] 01/04/2024 12:11:36 4 35140 Therapeutic Exercise (1:1) completed Mena Hester, FITTER WELDER [address], [place], [address], [facility] 12/30/2023 10:32:26 4 30502 Therapeutic Exercise (1:1) completed Elizabeth Lopez, PT [address], [place], [address], [facility] 12/28/2023 12:25:21 4 04602 Therapeutic Exercise (1:1) completed Elizabeth Lopez, PT [address], [place], [address], [facility] 12/23/2023 12:01:25 4 01188 Therapeutic Exercise (1:1) completed Elizabeth Lopez, PT [address], [place], [address], [facility] 12/21/2023 13:33:37 4 59542 Therapeutic Exercise (1:1) completed Mena Castilloius, FITTER WELDER [address], [place], [address], [facility] 12/17/2023 14:19:50 4 30754 Therapeutic Exercise (1:1) completed Elizabeth Lopez, PT [address], [place], [address], [facility] 12/14/2023 12:04:44 4 61748 Therapeutic Exercise (1:1) completed Elizabeth Lopez, PT [address], [place], [address], [facility] 12/09/2023 10:34:09 4 71511 Therapeutic Exercise (1:1) completed Mena Hester, FITTER WELDER [address], [place], [address], [facility] 12/06/2023 15:49:32 4 17813 Therapeutic Exercise (1:1) completed Mena Hester, FITTER WELDER [address], [place], [address], [facility] 12/01/2023 08:40:49 4 72565 Therapeutic Exercise (1:1) completed Elizabeth Lopez, PT [address], [place], [address], [facility] 11/26/2023 13:35:28 4 66982 Therapeutic Exercise (1:1) completed Elizabeth Lopez, PT [address], [place], [address], [facility] 11/24/2023 11:59:19 4 85691 Therapeutic Exercise (1:1) completed Elizabeth Lopez, PT [address], [place], [address], [facility] 11/19/2023 15:39:05 4 71734 Therapeutic Exercise (1:1) completed Elizabeth Lopez, PT [address], [place], [address], [facility] 11/18/2023 14:28:49 4 28640: Low complexity PT Eval completed Elizabeth Mariscalhenry, PT [address], [place], [address], [facility] 11/18/2023 14:28:53 4 G8417 BMI Above Upper Parameters, F/U Documented completed Elizabeth Jessica, PT [address], [place], [address], [facility] 11/18/2023 14:33:15 4 G8427 Current Medication Documented completed Elizabeth Mariscalhenry, PT [address], [place], [address], [facility] 11/18/2023 14:33:13 Imaging Results None recorded. Procedure Notes None recorded. Medical Equipment None Reported. Allergies Allergen ID Allergen Name Allergen Category Reaction Reaction Severity Criticality Documentation Date Start Date Code Code System Note Provider Name and Address Organization Details Recorded Time 513320 codeine medicatio n Not available Not available Not available 09/20/20232022 2670 RxNorm Not Available [facility] 15:37:49 Medications Name Sig Start Date Stop Date Status Note LastModified by Organization Details LastModified Time compound drug active Not Available Not Available Not Available medbox status USE DIRECTED active Not Available Not Available No t Available atorvastatin 40 mg tablet TAKE ONE TABLET EVERY NIGHT AT BEDTIME active Not Available Not Available N ot Available doxycycline hyclate 100 mg capsule TAKE [...] Not Available Not Available No t Available meclizine 12.5 mg tablet TAKE ONE TABLET DAILY active Not Available Not Available No t Available melatonin 3 mg tablet TAKE ONE TABLET EVERY NIGHT AT BEDTIME active Not Available Not Available N ot Available aspirin 81 mg tablet,delay ed release [...] Not Available Not Available No t Available folic acid 1 mg tablet TAKE ONE TABLET EVERY MORNING active Not Available Not Available No t Available montelukast 10 mg tablet TAKE ONE TABLET EVERY NIGHT AT BEDTIME active Not Available Not Available N ot Available furosemide 20 mg tablet TAKE 1 TABLET BY MOUTH EVERY DAY active Not Available Not Available No t Available gabapentin 100 mg capsule TAKE 1 [...] Not Available Not Available N ot Available ceftriaxone 2 gram solution for injection active Not Available Not Available No t Available oxycodone 5 mg tablet TAKE ONE TABLET BY MOUTH EVERY TWELVE HOURS NEEDED active Not Available Not Available No t Available neomycin 3.5 mg/g-polymyx in B 10,000 unit/g-dexam eth 0.1 % eye oint APPLY IN EACH EYE AT BEDTIME active Not Available Not Available No t Available escitalopram 20 mg tablet TAKE ONE TABLET EVERY MORNING active Not Available Not Available No t Available Xopenex HFA 45 mcg/actuatio n aerosol inhaler INHALE TWO PUFFS EVERY 6 HOURS NEEDED FOR WHEEZING active Not Available Not Available No t Available cholecalcife rol (vitamin D3) 25 mcg (1,000 unit) tablet TAKE 1 TABLET BY MOUTH DAILY active Not Available Not Available Not Available FeroSul 325 mg (65 mg iron) tablet TAKE ONE TABLET TWICE DAILY IN THE MORNING AND AT BEDTIME active Not Available Not Available N ot Available melatonin 5 mg tablet TAKE ONE TABLET EVERY NIGHT AT BEDTIME NEEDED active Not Available Not Available No t Available Minerin Creme topical APPLY TO THE AFFECTED AREA(S) NEEDED DRY SKIN active Not Available Not Available No t Available cholecalcife rol (vitamin D3) 50 mcg (2,000 unit) tablet TAKE ONE TABLET EVERY MORNING active Not Available Not Available No t Available Cerovite Senior 0.4 mg-300 mcg-250 mcg tablet TAKE ONE TABLET EVERY MORNING active Not Available Not Available No t Available Eliquis 5 mg tablet TAKE ONE TABLET TWICE DAILY IN THE MORNING AND AT BEDTIME active Not Available Not Available N ot Available Eliquis 2.5 mg tablet TAKE ONE TABLET TWICE DAILY IN THE MORNING AND AT BEDTIME active Not Available Not Available N ot Available Stimulant Laxative Plus 8.6 mg-50 mg tablet TAKE 2 TABLETS BY MOUTH DAILY AT BEDTIME FOR 14 DAYS NEEDED FOR CONSTIPATIO N active Not Available Not Available No t Available Hydrophor 42 % topical ointment APPLY TO THE AFFECTED AREA(S) ONCE DAILY NEEDED active Not Available Not Available No t Available Entresto 24 mg-26 mg tablet TAKE ONE TABLET TWICE DAILY IN THE MORNING AND AT BEDTIME active Not Available Not Available N ot Available Entresto Entresto 24-26MG Tablet 2023 active Statu s: 'Curr ent'; Not Available Not Available Not Available Vraylar 1.5 mg capsule TAKE ONE CAPSULE EVERY MORNING active Not Available Not Available No t Available Xiidra 5 % eye drops in a dropperette instill one drop onto both eyes twice a day active Not Available Not Available Not Available Cylemouna Ellipta 100 mcg-62.5 mcg-25 mcg powder for inhalation INHALE 1 PUFF ONCE DAILY active Not Available Not Available No t Available B Complex 1 (with folic acid) 0.4 mg tablet TAKE ONE TABLET EVERY MORNING active Not Available Not Available No t Available Breztri Aerosphere 160 mcg-9mcg-4.8 mcg/actuatio n HFA aerosol inhaler INHALE TWO PUFFS BY MOUTH TWICE DAILY active Not Available Not Available No t Available Vitals None Recorded Social History None recorded. Functional Status None recorded. Mental Status None recorded. Family History Nothing Reported. Medical History No medical history recorded. Gynecological HistoryNo gynecological history recorded. Obstetrics History GPAL:G 0 P 0 0 0 0 Past Encounters Encounter ID Performer Location Encounter Start Date Encounter Closed Date Diagnosis/Indication Diagnosis SNOMED-CT Code Diagnosis ICD10 Code Diagnosis Note [id number] Elizabeth Lopez PT [facility] [address] [place] [address] 03/29/2024 10:20:08 03/29/2024 11:24:22 Follow-up orthopedic assessment 977412475 Z47.1 History of left total knee replacement [id number] 504441 Z96.159 [id number] Elizabeth Jessica PT [facility] [address] [place] [address] 04/05/2024 14:19:44 04/05/2024 15:17:55 Follow-up orthopedic assessment 734583576 Z47.1 History of left total knee replacement 3027089912 192137 Z96.942 [id number] Elizabeth Lopez PT [facility] [address] [place] [address] 04/12/2024 12:38:56 04/12/2024 14:19:21 Follow-up orthopedic assessment 095042357 Z47.1 History of left total knee replacement 3568019731 755282 Z96.785 [id number] Elizabeth Lopez PT [facility] [address] [place] [address] 04/19/2024 14:22:52 04/19/2024 15:26:36 Follow-up orthopedic assessment 342604819 Z47.1 History of left total knee replacement 7788363236 060563 Z96.274 [id number] Elizabeth Lopez, PT [facility] [address] [place] [address] 04/26/2024 12:22:49 04/26/2024 14:15:09 Follow-up orthopedic assessment 236845754 Z47.1 History of left total knee replacement 0683760165 792200 Z96.652 Health Concerns Section Related Observation LastModified by Organization Detai ls LastModified Time None Recorded Concern Status LastModified by Organization Details LastModified Time None Recorded Payers Encounter Date Sequence Insurance Name Policy Number Policy Christianson Covered Member ID Christianson Member ID Guarantor Name 04/26/2024 1 [place] [employer] Scarlet Elizabeth [id number] Scarlet Elizabeth 04/26/2024 2 [place] [id number] Scarlet Elizabeth [id number] Scarlet Elizabeth Notes Date Note Type Note Provider Name and Address Organization Details Recorded Time 04/26/2024 text/html Pt reports having poor balance; I fell this morning trying to bend over to put my hair up in a ponytail, but I didn't hurt anything Mena Hester, FITTER WELDER [address], [place], [address], [facility] 04/26/2024 13:36:31 OBGyn Episode No OBEpisode recorded.
== END 2024-07-26 11:38 | disposition home or self-care (01) ==
PROVIDERS: PCP Internal Medicine; Visit Provider Hospitalist
DX: J98.4 Other disorders of lung (principal); R06.09 Other forms of dyspnea; J41.0 Simple chronic bronchitis; J98.11 Atelectasis; G47.33 Obstructive sleep apnea (adult) (pediatric)
CPT/HCPCS: 99214

== ENCOUNTER → 2024-07-26 11:09 | Outpatient (BNVA) | payer MEDICARE, SELFPAY | PROVIDERS: PCP Internal Medicine; Visit Provider Hospitalist | DX: G47.33 Obstructive sleep apnea (adult) (pediatric) (principal); J98.4 Other disorders of lung; R06.09 Other forms of dyspnea; J41.0 Simple chronic bronchitis; J98.11 Atelectasis | CPT/HCPCS: 99212 ==